=== PATIENT | male | born 1950 | race African-American/Black ===

== ENCOUNTER 2018-02-17 12:12 | Outpatient (CLI) | payer MEDICARE, OTHER ==
[2018-02-17 14:32] LABS: Bilirubin Negative (Negative); Blood, Urine Negative (Negative); Clarity CLEAR (Clear); Glucose, Urine (Dipstick) Negative (Negative); Leukocyte Negative (Negative); Nitrite Negative (Negative); Protein, Urine (Dipstick) Negative (Neg-Trace); Specific Gravity, Urine 1.021 (1.002-1.036)
[2018-02-17 14:34] LABS: Bacteria/HPF None Seen HPF (None Seen); Hyaline Casts/LPF 0-3 HYALINE CAST LPF (0-3 Hyaline); Squamous Epithelial None Seen HPF (0-3); WBC/HPF None Seen HPF (0-3)
== END 2018-02-17 12:13 | disposition home or self-care (01) ==
LOC: LABBT 12:12
PROVIDERS: ATTEND Orthopaedic Surgery
DX: Z01.818 Encounter for other preprocedural examination (principal); M16.11 Unilateral primary osteoarthritis, right hip
CPT/HCPCS: 81001; 87081; 93005; 93010

== ENCOUNTER 2018-02-17 12:30 | Inpatient (IN) | payer MEDICARE, OTHER ==
--- NOTE | 2018-02-24 09:26 | HP ---
HISTORY OF PRESENT ILLNESS: The patient is a 67-year-old male with a long history of progressive deg enerative arthritis of the right hip, unresponsive to conservative treatment including rest, restrict ion of activities, and use of antiinflammatory medications. The pain is now interfering with day-to- day activities including walking, getting dressed and sleeping. PAST MEDICAL HISTORY: The patient has history of gout, diabetes, arthritis, renal insufficiency, pre vious back surgery and previous right total knee replacement. He has also had some superficial absce sses of the finger infection apparently secondary to MRSA which resolved with ID and antibiotics. He has had no recent problems. CURRENT MEDICATIONS: Include amlodipine, rosuvastatin, Lyrica, hydrocodone, metformin. ALLERGIES: He has no known allergies. FAMILY HISTORY/SOCIAL HISTORY/REVIEW OF SYSTEMS: Otherwise unremarkable. PHYSICAL EXAMINATION: GENERAL: Reveals a healthy heavyset male. HEENT: Unremarkable. NECK: Supple. CHEST: Clear. HEART: Regular rate and rhythm. ABDOMEN: Soft, nontender. RECTAL/GENITAL: Deferred. EXTREMITIES: Pertinent findings to the right hip. Right leg is 1 cm short. There is tenderness in the anterior hip and groin area. There are no masses. There are venous stasis changes of both lower legs. Neurovascular exam is intact. Cannot palpate distal pulses. There is good capillary refill. There is decreased range of motion of the right hip and internal rotation of the hip which reproduc es his pain. There is a right antalgic gait. Straight leg raising is negative. LABORATORY AND X-RAY FINDINGS: X-rays of the pelvis and right hip reveal severe DJD with no joint sp omaira remaining. IMPRESSION: 1. Degenerative arthritis, right hip. 2. History of hypertension. 3. History of diabetes. 4. History of gout. 5. Status post right total knee replacement. PLAN: Right total hip replacement. The nature of the surgery, length of recovery, and potential com plications such as infection, loss of motion, incomplete relief, neurovascular injury, thromboembolic phenomena, leg length discrepancy, possible transfusion, and need for revision have been discussed i n detail.
[2018-02-28] MEDS ORDERED: Vancomycin HCl 1.5 GM in Sodium Chloride 0.9% 250 ML 300 ML IVPB SCH ×2 (08:00→20:00)
[2018-02-28] MEDS ORDERED: Midazolam HCl 2 mg/2 ml Vial ONE (08:01)
[2018-02-28] MEDS ORDERED: Fentanyl 100 MCG/2 ML VIAL ONE ×4 (08:01→12:13)
[2018-02-28] MEDS ORDERED: Sodium Chloride 0.9% 100 ML ONE (08:08)
[2018-02-28] MEDS ORDERED: CEFAZOLIN/Water 2 GM/20 ML SYRINGE ONE (08:08)
[2018-02-28] MEDS ORDERED: Ondansetron HCl/PF 4 MG/2 ML Vial IVP PRN ×4 (08:30→12:58)
[2018-02-28] MEDS ORDERED: Naloxone HCl 0.4 mg/ml Vial IV PRN (08:30)
[2018-02-28] MEDS ORDERED: traMADol HCl 50 MG TAB PO PRN ×3 (08:30→12:58)
[2018-02-28] MEDS ORDERED: diphenhydrAMINE 50 MG/ML VIAL IM PRN ×2 (08:30→11:49)
[2018-02-28] MEDS ORDERED: Promethazine HCl 25 MG/ML VIAL IM PRN ×3 (08:30→11:50)
[2018-02-28] MEDS ORDERED: Naloxone HCl 0.4 mg/ml Vial IVP PRN ×3 (08:30→11:49)
[2018-02-28] MEDS ORDERED: Hydrocerin (Eucerin) Cream 120 gm Jar TOP PRN (08:30)
[2018-02-28] MEDS ORDERED: Ketorolac Tromethamine 30 MG/ML VIAL IVP PRN (08:30)
[2018-02-28] MEDS ORDERED: HYDROcodone/Acetaminophen 5/325 mg Tablet PO PRN ×2 (08:30)
[2018-02-28] MEDS ORDERED: Zolpidem Tartrate 5 MG TAB PO PRN ×3 (08:30→12:58)
[2018-02-28] MEDS ORDERED: fentaNYL Citrate/PF 1,250 MCG, Bupivacaine 25 ML in Sodium Chloride 0.9% 250 ML 200 ML EPIDURAL SCH ×2 (08:30→12:00)
[2018-02-28] MEDS ORDERED: diphenhydrAMINE 25 MG CAP PO PRN ×3 (08:30→12:58)
[2018-02-28] MEDS ORDERED: Promethazine HCl 25 MG SUPP PR PRN ×2 (08:30→11:49)
[2018-02-28] MEDS ORDERED: diphenhydrAMINE 50 MG/ML VIAL IVP PRN ×2 (08:30→11:49)
[2018-02-28] MEDS ORDERED: Bupivacaine/Epinephrine 0.25% 30 ML VIAL ONE (09:28)
[2018-02-28] MEDS ORDERED: Tranexamic Acid 1,000 MG in Sodium Chloride 0.9% 100 ML IVPB SCH ×2 (11:45→12:58)
[2018-02-28] MEDS ORDERED: Bupivacaine 0.25% 10 ML VIAL EPIDURAL PRN (11:49)
[2018-02-28] MEDS ORDERED: Eucerin (Mineral Oil/Petrolatum,White) 30 gm Jar TOP PRN (11:49)
[2018-02-28] MEDS ORDERED: Promethazine HCl 25 MG/ML VIAL SLOW IVP PRN ×2 (11:50→12:58)
[2018-02-28] MEDS ORDERED: Communication Order-Pharmacy FS SCH ×2 (12:00)
[2018-02-28] MEDS ORDERED: Fentanyl 100 MCG/2 ML VIAL SLOW IVP PRN ×2 (12:58)
[2018-02-28] MEDS ORDERED: HYDROcodone/Acetaminophen 10/325 mg Tablet PO PRN ×2 (12:58)
--- NOTE | 2018-02-28 13:38 | RAD ---
RIGHT HIP TWO VIEWS: HISTORY: Status post right hip arthroplasty. COMPARISON: None. FINDINGS: Two views of the right hip show the patient to be status post right hip arthroplasty without perihard bowers lucency or fracture. Overlying soft tissue swelling is from recent surgery. IMPRESSION: Status post right hip arthroplasty without evidence of complication. POS: [facility]
--- NOTE | 2018-02-28 13:56 | OP ---
DATE OF PROCEDURE: 02/28/2018 PREOPERATIVE DIAGNOSIS: End-stage bicompartmental osteoarthritis, right hip. POSTOPERATIVE DIAGNOSIS: End-stage bicompartmental osteoarthritis, right hip. PROCEDURE: Press-fit right total hip arthroplasty. SURGEON: Kimo Mccormack M.D. BOTTLE LINE WORKER: Gino Nguyen PA-C. ANESTHESIA: General via endotracheal tube augmented with indwelling epidural. COMPONENTS USED: [facility] [employer] PSL, 58 mm Press-Fit cluster acetabular shell with a 0 degree fixed bearing polyethylene insert, V40 40 mm metallic femoral head neutral offset with standar d neck length with a size 4 Accolade press-fit hip stem. DRAINS: None. SPECIMENS: None. COMPLICATIONS: None. ESTIMATED BLOOD LOSS: 350 mL. FLUIDS: Intake was 1400 crystalloid. OUTPUT: 200 mL of clear yellow urine output. DRAINS: None. SPECIMENS: None. COMPLICATIONS: None. COUNTS: Correct. INDICATIONS FOR SURGERY: Ty is a 67-year-old male who has had right hip, groi n, and thigh pain amplified with standing and walking for the last 5-7 years. He has failed conserva tive management and elected to proceed with total hip arthroplasty to prevent pain. PROCEDURE IN DETAIL: After informed consent was obtained in the preoperative holding area, the patie nt was taken to the operative suite where general anesthesia was induced. The patient was then posit ioned in the lateral decubitus position. The hip was then prepped and draped in usual sterile fashio n. The patient received preoperative antibiotics. Prior to incision, time-out was called and all me mbers of the surgical team agreed upon site, surgeon, and patient. After this, a longitudinal incisi on was made directly over the trochanter, noted by palpation extending 2 fingerbreadths above and bel ow the trochanter. The deeper subcutaneous layer was undermined with Bovie electrocautery. The ilio tibial band was encountered and incised sharply and the plane below this was developed bluntly. A lis retractor was placed to hold this opened. The lateral aspect of the trochanter and the abduct or muscles were encountered and then reflected anteriorly off the trochanter using Bovie electrocaute ry. Once this was completed, the anterior capsule was then encountered and identified and copious ca psulotomy was carried out, exposing the femoral neck and head. Dislocation maneuver was then performe d and an in situ provisional neck cut was then made using the oscillating saw. Attention was then tu rned to acetabular preparation and sequential reaming was carried out up to the appropriate diameter and a trial was then malleted into place with good firm resistance and no pullout. The permanent omaira tabular shell was then malleted squarely into place, as was the appropriate liner. Once completed, t he wound was copiously irrigated and attention was then turned to femoral preparation. Flexion and ex ternal rotation was performed of the exposed thigh and femoral elevators were then placed at the prox imal aspect of the wound. Canal finder was used to establish the length of the canal and sequential reaming was carried out, followed by broaching. Once the appropriate stability was established with the trial broaches with both flexion, extension and rotational stability, we did trial with neutral a nd 2 mm offset incremental necks. Once the appropriate size was decided upon, with good stability no eduard with flexion, extension, internal and external rotation and shuck being negative, we removed the femoral trial broach and malletted into place the permanent prosthesis with good firm fit, which was also stable to rotation. Again, the hip felt very stable to flexion, extension, internal and externa l rotation. Leg lengths appeared near anatomic clinically and we were quite happy with prosthesis pl acement. Copious irrigation was then carried out through the entirety of the wound. Primary closure of the abductors was accomplished with interrupted #2 Vicryl mflosh-is-ejuvd stitches and the IT ban d was then closed with interrupted #2 Vicryl, oversewn with a #2 running barbed Quill stitch. Subcut aneous fascia was closed with running barbed Quill stitch and a subcuticular Monocryl barbed Quill st itch was used for skin closure and augmented with skin cement. A sterile dressing was applied. The p rocedure was terminated without any complication. All counts were correct. The patient was awakened in the operative suite and taken to the recovery room in stable condition.
[2018-02-28] MEDS ORDERED: CEFAZOLIN/Water 2 GM/20 ML SYRINGE SLOW IVP SCH (14:00)
--- NOTE | 2018-02-28 14:34 | PDOC.PN ---
- Subjective Encounter Start Date: 02/28/18 Encounter Start Time: 14:30 Subjective: is post op right hip replacement -: no sob or chest pain -: is going for walk with PT/OT - Objective MAR Reviewed: Yes Vital Signs & Weight: Vital Signs (12 hours) Temp Pulse Resp BP Pulse Ox 02/28/18 12:58 97.5 F L 64 18 103/65 97 Weight Weight 280 lb I&O: 02/27/18 02/28/18 03/01/18 06:59 06:59 06:59 Intake Total 200 Balance 200 Additional Labs: Accuchecks 02/28/18 09:10 POC Glucose 114 H Phys Exam - Physical Examination HEENT: PERRLA, moist MMs Neck: no JVD, supple Respiratory: no wheezing, no rales Cardiovascular: RRR, no significant murmur Gastrointestinal: soft, non-tender, positive bowel sounds Musculoskeletal: pulses present Neurological: non-focal, moves all 4 limbs Psychiatric: normal affect, A&O x 3 Dx/Plan (1) Status post right hip replacement Code(s): Z96.641 - PRESENCE OF RIGHT ARTIFICIAL HIP JOINT Status: Acute (2) DM type 2 (diabetes mellitus, type 2) Status: Chronic Qualifiers: Diabetes mellitus assisted insulin use: without assisted use Diabetes mellitus complication status: with unspecified complications Qualified Code(s) : E11.8 - Type 2 diabetes mellitus with unspecified complications (3) Dyslipidemia Code(s): E78.5 - HYPERLIPIDEMIA, UNSPECIFIED Status: Chronic Comment: on Crestor (4) HTN (hypertension) Code(s): I10 - ESSENTIAL (PRIMARY) HYPERTENSION Status: Chronic Qualifiers: Hypertension type: essential hypertension Qualified Code(s): I10 - Essential (primary) hypertension (5) Obesity (BMI 30-39.9) Code(s): E66.9 - OBESITY, UNSPECIFIED Status: Chronic - Plan is on asp bid for dvt prophylaxis -: continue norvasc, metformin, iron. -: hold hctz for now, pt is on iv fluids -: marcaine, fentanyl, narco, ultram prn for pain -: will f/u * . Review of Systems - Medications/Allergies Allergies/Adverse Reactions: Allergies Allergy/AdvReac Type Severity Reaction Status Date / Time No Known Allergies Allergy Verified 02/17/18 12:33 Medications: Current Medications Acetaminophen (Tylenol) 650 mg PO Q4H PRN PRN Reason: PRO/ T > 101F; Mild Pain (1-3) Hydrocodone Bitart/Acetaminophen ([place] 5/325) 1 tab PO Q4H PRN PRN Reason: Mild Pain 0-3 Hydrocodone Bitart/Acetaminophen ([place] 5/325) 2 tab PO Q4H PRN PRN Reason: For Moderate Pain 4-6 Amlodipine Besylate (Norvasc) 10 mg PO DAILY [facility] Aspirin (Aspirin) 325 mg PO BID [facility] Bupivacaine HCl (Marcaine) 5 ml EPIDURAL ONE PRN PRN Reason: Uncontrolled Pain Stop: 03/05/18 11:50 Cefazolin Sodium (Ancef) 2 gm SLOW IVP 0200,1000,1800 [facility] Stop: 03/01/18 02:01 Celecoxib (Celebrex) 200 mg PO DAILY [facility] Diphenhydramine HCl (Benadryl) 25 mg IVP Q3H PRN PRN Reason: Itching Diphenhydramine HCl (Benadryl) 25 mg PO Q3H PRN PRN Reason: Itching Diphenhydramine HCl (Benadryl) 25 mg IM Q3H PRN PRN Reason: Itching Ferrous Gluconate (Fergon) 324 mg PO BID [facility] Hydrochlorothiazide (Hydrochlorothiazide) 25 mg PO DAILY [facility] Fentanyl Citrate 1,250 mcg/Bupivacaine HCl 25 ml/ Sodium Chloride 250 mls @ 0 mls/hr EPIDURAL INF ANN PRN Reason: As Directed Sodium Chloride (Normal Saline 0.9%) 1,000 mls @ 100 mls/hr IV .Q10H ANN Vancomycin HCl 1.5 gm/ Sodium (Chloride) 300 mls @ 200 mls/hr IVPB 1999 [facility] Stop: 02/28/18 21:29 Iron/Minerals/Multivitamins (Theragran M) 1 tab PO DAILY [facility] Metformin HCl (Glucophage) 500 mg PO DAILY [facility] Mineral Oil/White Petrolatum (Eucerin Cream) 0 gm TOP PRN PRN PRN Reason: Itching Miscellaneous Information (Communication Order-Pharmacy) 1 each FS ASDIR [facility] Miscellaneous Information (Communication Order-Pharmacy) 1 each FS ONE [facility] Stop: 03/05/18 12:01 Miscellaneous Information (Communication Order-Pharmacy) 1 each FS ONE [facility] Stop: 03/05/18 12:01 Naloxone HCl (Narcan) 0.2 mg IVP Q5MIN PRN PRN Reason: Opiate Reversal Naloxone HCl (Narcan) 0.1 mg IVP Q15MIN PRN PRN Reason: Urinary retention Ondansetron HCl (Zofran) 4 mg IVP Q6H PRN PRN Reason: Nausea/Vomiting Ondansetron HCl (Zofran) 4 mg IVP Q6H PRN PRN Reason: Nausea/Vomiting Pantoprazole Sodium (Protonix) 40 mg PO DAILY [facility] Pneumococcal 13-Valent Conj Vacc (Prevnar) 0.5 ml IM .ONCE ONE Stop: 02/28/18 21:01 Pregabalin (Lyrica) 150 mg PO BID [facility] Promethazine HCl (Phenergan) 12.5 mg IM Q4H PRN PRN Reason: Nausea/Vomiting Promethazine HCl (Phenergan Suppository) 25 mg [place] Q4H PRN PRN Reason: Nausea/Vomiting Promethazine HCl (Phenergan) 12.5 mg SLOW IVP Q4H PRN PRN Reason: Nausea/Vomiting Rosuvastatin Calcium (Crestor) 20 mg PO HS [facility] Senna/Docusate Sodium (Senokot S) 2 tab PO BID [facility] Sodium Chloride (Flush - Normal Saline) 10 ml IVF PRN PRN PRN Reason: Saline Flush Tramadol HCl (Ultram) 50 mg PO Q6H PRN PRN Reason: Mild Pain 1-3 Tramadol HCl (Ultram) 100 mg PO Q6H PRN PRN Reason: Moderate Pain 4-6 Zolpidem Tartrate (Ambien) 5 mg PO HSPRN PRN PRN Reason: Insomnia
[2018-02-28] MEDS ORDERED: Ondansetron HCl/PF 4 MG/2 ML Vial ONE (14:43)
[2018-02-28] MEDS ORDERED: ePHEDrine/0.9% NaCl/PF SYRINGE 50 mg/10 ml ONE (14:43)
[2018-02-28] MEDS ORDERED: PHENYLEPHRINE-NS 100 MCG/ML 10 ML SYRINGE ONE (14:43)
[2018-02-28] MEDS ORDERED: Lidocaine 1% PF 5 ML VIAL ONE (14:43)
[2018-02-28] MEDS ORDERED: PROPOFOL 200 MG/20 ML VIAL ONE (14:43)
[2018-02-28] MEDS: CEFAZOLIN/Water 2 GM/20 ML SYRINGE SLOW IVP SCH (18:12)
[2018-02-28] MEDS: Sodium Chloride 0.9% 1,000 ML IV SCH (18:12)
[2018-02-28] MEDS: Rosuvastatin 20 MG TAB PO SCH (20:03)
[2018-02-28] MEDS: Aspirin 325 MG TAB PO SCH (20:03)
[2018-02-28] MEDS: Senokot S 8.6-50 MG TAB PO SCH (20:03)
[2018-02-28] MEDS: Ferrous Gluconate 324 MG TAB PO SCH (20:03)
[2018-02-28] MEDS: Pregabalin 75 MG CAP PO SCH (20:03)
[2018-02-28] MEDS ORDERED: Prevnar 13-Val Conj/PF 0.5 ML SYRINGE IM ONE (21:00)
[2018-03-01] MEDS: Sodium Chloride 0.9% 1,000 ML IV SCH ×3 (00:30→16:45)
[2018-03-01] MEDS: Acetaminophen 325 MG TAB PO PRN ×2 (00:31→20:01)
[2018-03-01] MEDS: CEFAZOLIN/Water 2 GM/20 ML SYRINGE SLOW IVP SCH (02:14)
[2018-03-01 05:24] LABS: Hemoglobin 12.6 g/dL (14.0-18.0); Mean Corpuscular HGB CONC 34.3 g/dL (32.0-36.0); Mean Corpuscular Hemoglobin 30.3 pg (27.0-31.0); Mean Corpuscular Volume 88.6 fL (78.0-98.0); Mean Platelet Volume 7.5 fL (7.4-10.4); Platelet Count 186 thou/uL (130-400); RBC Distribution Width 12.9 % (11.5-14.5); Red Blood Cell (RBC) Count 4.14 mill/uL (4.70-6.10); White Blood Cell (WBC) Count 7.8 thou/uL (4.8-10.8)
[2018-03-01] MEDS: Ferrous Gluconate 324 MG TAB PO SCH ×2 (08:36→20:02)
[2018-03-01] MEDS: CeleCOXIB 100 MG CAP PO SCH (08:36)
[2018-03-01] MEDS: Aspirin 325 MG TAB PO SCH ×2 (08:36→20:02)
[2018-03-01] MEDS: Amlodipine 10 MG TAB PO SCH (08:36)
[2018-03-01] MEDS: Multivitamin W/ Minerals 1 TAB PO SCH (08:37)
[2018-03-01] MEDS: Hydrochlorothiazide 25 MG TAB PO SCH (08:37)
[2018-03-01] MEDS: metFORMIN 500 MG TAB PO SCH (08:37)
[2018-03-01] MEDS: Pregabalin 75 MG CAP PO SCH ×2 (08:37→20:02)
[2018-03-01] MEDS: Senokot S 8.6-50 MG TAB PO SCH ×2 (08:38→20:01)
--- NOTE | 2018-03-01 10:01 | PRG ---
DATE OF SERVICE: 03/01/2018 SUBJECTIVE: Ty is a 67-year-old male postop day #1 from a right total hip arthroplasty. He is doing relatively well. He has no complaints of pain. He is taking a regular diet and voiding. Fol ey is still intact, urine output was good. OBJECTIVE: GENERAL: He is alert and oriented to person, place, and time and situation. Grossly nonfocal. EXTR EMITIES: There is no erythema around his incision. No strikethrough. Hemoglobin and hematocrit is 12.6 and 36.7. IMPRESSION: A 67-year-old male postop day #1 right total hip arthroplasty, doing well. PLAN: Continue current care. Possible discharge tomorrow versus skilled or rehab placement.
[2018-03-01 12:27] VITALS: BMI 35.2
--- NOTE | 2018-03-01 12:29 | PDOC.PN ---
- Subjective Encounter Start Date: 03/01/18 Encounter Start Time: 10:20 Subjective: no sob or chest pain -: ambulated with PT this morning -: children/family at bedside - Objective MAR Reviewed: Yes Vital Signs & Weight: Vital Signs (12 hours) Temp Pulse Resp BP BP Pulse Ox 03/01/18 11:52 99.2 F 86 18 116/57 L 95 03/01/18 08:36 87 122/66 03/01/18 07:35 100.9 F H 87 20 122/66 95 03/01/18 07:00 100.9 F H 87 20 03/01/18 05:00 100 F H 91 20 116/72 94 L Weight Admit Weight 260 lb Weight 260 lb I&O: 02/28/18 03/01/18 03/02/18 06:59 06:59 06:59 Intake Total 1400 Output Total 2000 Balance -600 Result Diagrams: 03/01/18 04:53 Additional Labs: Accuchecks 02/28/18 22:10 POC Glucose 112 H Phys Exam - Physical Examination HEENT: PERRLA, moist MMs Neck: no JVD, supple Respiratory: no wheezing, no rales Cardiovascular: RRR, no significant murmur Gastrointestinal: soft, non-tender, positive bowel sounds Musculoskeletal: no edema, pulses present Neurological: non-focal, moves all 4 limbs Psychiatric: normal affect, A&O x 3 Dx/Plan (1) Status post right hip replacement Code(s): Z96.641 - PRESENCE OF RIGHT ARTIFICIAL HIP JOINT Status: Acute Comment: done on 02/28/2018 (2) DM type 2 (diabetes mellitus, type 2) Status: Chronic Qualifiers: Diabetes mellitus termite helper insulin use: without senior care use Diabetes mellitus complication status: with unspecified complications Qualified Code(s) : E11.8 - Type 2 diabetes mellitus with unspecified complications (3) Dyslipidemia Code(s): E78.5 - HYPERLIPIDEMIA, UNSPECIFIED Status: Chronic Comment: on Martha (4) HTN (hypertension) Code(s): I10 - ESSENTIAL (PRIMARY) HYPERTENSION Status: Chronic Qualifiers: Hypertension type: essential hypertension Qualified Code(s): I10 - Essential (primary) hypertension (5) Obesity (BMI 30-39.9) Code(s): E66.9 - OBESITY, UNSPECIFIED Status: Chronic - Plan hemostable -: on asp bid, norvasc and metformin daily -: had post op fever -: is working actively with PT -: dc plan per ortho advice * . Review of Systems - Medications/Allergies Allergies/Adverse Reactions: Allergies Allergy/AdvReac Type Severity Reaction Status Date / Time No Known Allergies Allergy Verified 02/17/18 12:33 Medications: Current Medications Acetaminophen (Tylenol) 650 mg PO Q4H PRN PRN Reason: PRO/ T > 101F; Mild Pain (1-3) Last Admin: 03/01/18 00:31 Dose: 650 mg Hydrocodone Bitart/Acetaminophen ([place] 5/325) 1 tab PO Q4H PRN PRN Reason: Mild Pain 0-3 Hydrocodone Bitart/Acetaminophen ([place] 5/325) 2 tab PO Q4H PRN PRN Reason: For Moderate Pain 4-6 Amlodipine Besylate (Norvasc) 10 mg PO DAILY [facility] Last Admin: 03/01/18 08:36 Dose: 10 mg Aspirin (Aspirin) 325 mg PO BID [facility] Last Admin: 03/01/18 08:36 Dose: 325 mg Bupivacaine HCl (Marcaine) 5 ml EPIDURAL ONE PRN PRN Reason: Uncontrolled Pain Stop: 03/05/18 11:50 Celecoxib (Celebrex) 200 mg PO DAILY [facility] Last Admin: 03/01/18 08:36 Dose: 200 mg Diphenhydramine HCl (Benadryl) 25 mg IVP Q3H PRN PRN Reason: Itching Diphenhydramine HCl (Benadryl) 25 mg PO Q3H PRN PRN Reason: Itching Diphenhydramine HCl (Benadryl) 25 mg IM Q3H PRN PRN Reason: Itching Ferrous Gluconate (Fergon) 324 mg PO BID [facility] Last Admin: 03/01/18 08:36 Dose: 324 mg Hydrochlorothiazide (Hydrochlorothiazide) 25 mg PO DAILY [facility] Last Admin: 03/01/18 08:37 Dose: 25 mg Fentanyl Citrate 1,250 mcg/Bupivacaine HCl 25 ml/ Sodium Chloride 250 mls @ 0 mls/hr EPIDURAL INF ANN PRN Reason: As Directed Sodium Chloride (Normal Saline 0.9%) 1,000 mls @ 100 mls/hr IV .Q10H [facility] Last Admin: 03/01/18 08:35 Dose: Not Given Iron/Minerals/Multivitamins (Theragran M) 1 tab PO DAILY [facility] Last Admin: 03/01/18 08:37 Dose: 1 tab Metformin HCl (Glucophage) 500 mg PO DAILY [facility] Last Admin: 03/01/18 08:37 Dose: 500 mg Mineral Oil/White Petrolatum (Eucerin Cream) 0 gm TOP PRN PRN PRN Reason: Itching Miscellaneous Information (Communication Order-Pharmacy) 1 each FS ASDIR [facility] Miscellaneous Information (Communication Order-Pharmacy) 1 each FS ONE [facility] Stop: 03/05/18 12:01 Miscellaneous Information (Communication Order-Pharmacy) 1 each FS ONE [facility] Stop: 03/05/18 12:01 Naloxone HCl (Narcan) 0.2 mg IVP Q5MIN PRN PRN Reason: Opiate Reversal Naloxone HCl (Narcan) 0.1 mg IVP Q15MIN PRN PRN Reason: Urinary retention Ondansetron HCl (Zofran) 4 mg IVP Q6H PRN PRN Reason: Nausea/Vomiting Ondansetron HCl (Zofran) 4 mg IVP Q6H PRN PRN Reason: Nausea/Vomiting Pantoprazole Sodium (Protonix) 40 mg PO DAILY [facility] Last Admin: 03/01/18 08:37 Dose: 40 mg Pregabalin (Lyrica) 150 mg PO BID [facility] Last Admin: 03/01/18 08:37 Dose: 150 mg Promethazine HCl (Phenergan) 12.5 mg IM Q4H PRN PRN Reason: Nausea/Vomiting Promethazine HCl (Phenergan Suppository) 25 mg [place] Q4H PRN PRN Reason: Nausea/Vomiting Promethazine HCl (Phenergan) 12.5 mg SLOW IVP Q4H PRN PRN Reason: Nausea/Vomiting Rosuvastatin Calcium (Crestor) 20 mg PO [facility] Last Admin: 02/28/18 20:03 Dose: 20 mg Senna/Docusate Sodium (Senokot S) 2 tab PO BID [facility] Last Admin: 03/01/18 08:38 Dose: 2 tab Sodium Chloride (Flush - Normal Saline) 10 ml IVF PRN PRN PRN Reason: Saline Flush Tramadol HCl (Ultram) 50 mg PO Q6H PRN PRN Reason: Mild Pain 1-3 Tramadol HCl (Ultram) 100 mg PO Q6H PRN PRN Reason: Moderate Pain 4-6 Zolpidem Tartrate (Ambien) 5 mg PO HSPRN PRN PRN Reason: Insomnia
[2018-03-01] MEDS: Rosuvastatin 20 MG TAB PO SCH (20:02)
[2018-03-02] MEDS: Sodium Chloride 0.9% 1,000 ML IV SCH ×2 (04:37→13:58)
[2018-03-02] MEDS: CeleCOXIB 100 MG CAP PO SCH (08:13)
[2018-03-02] MEDS: Aspirin 325 MG TAB PO SCH ×2 (08:13→20:55)
[2018-03-02] MEDS: Amlodipine 10 MG TAB PO SCH (08:13)
[2018-03-02] MEDS: Multivitamin W/ Minerals 1 TAB PO SCH (08:14)
[2018-03-02] MEDS: Hydrochlorothiazide 25 MG TAB PO SCH (08:14)
[2018-03-02] MEDS: Pregabalin 75 MG CAP PO SCH ×2 (08:14→20:55)
[2018-03-02] MEDS: metFORMIN 500 MG TAB PO SCH (08:14)
[2018-03-02] MEDS: Ferrous Gluconate 324 MG TAB PO SCH ×2 (08:14→20:52)
[2018-03-02] MEDS: Senokot S 8.6-50 MG TAB PO SCH ×2 (08:15→20:57)
--- NOTE | 2018-03-02 14:56 | PDOC.PN ---
- Subjective Encounter Start Date: 03/02/18 Encounter Start Time: 07:20 Pt seen for followup re: hypertension. Denies chest pain, shortness of breath, fevers or chills. - Objective MAR Reviewed: Yes Vital Signs & Weight: Vital Signs (12 hours) Temp Pulse Resp BP BP BP Pulse Ox 03/02/18 12:04 98.6 F 90 18 103/65 96 03/02/18 08:13 90 127/75 03/02/18 08:00 97.9 F 90 18 03/02/18 07:10 97.9 F 90 18 127/75 96 03/02/18 04:00 100 F H 91 20 95/60 93 L Weight Admit Weight 260 lb Weight 260 lb I&O: 03/01/18 03/02/18 03/03/18 06:59 06:59 06:59 Intake Total 1400 2140 Output Total 1999 1875 Balance -600 265 Result Diagrams: 03/01/18 04:53 Additional Labs: labs reviewed by me Phys Exam - Physical Examination Obese HEENT: moist MMs Neck: supple Respiratory: clear to auscultation bilateral Cardiovascular: RRR Gastrointestinal: soft Neurological: moves all 4 limbs Psychiatric: normal affect Dx/Plan (1) HTN (hypertension) Code(s): I10 - ESSENTIAL (PRIMARY) HYPERTENSION Status: Chronic Qualifiers: Hypertension type: essential hypertension Qualified Code(s): I10 - Essential (primary) hypertension Comment: controlled (2) DM type 2 (diabetes mellitus, type 2) Status: Chronic Qualifiers: Diabetes mellitus detention insulin use: without buttermaker use Diabetes mellitus complication status: with unspecified complications Qualified Code(s) : E11.8 - Type 2 diabetes mellitus with unspecified complications Comment: reasonably controlled with accuchecks, insulin sliding scale (3) Dyslipidemia Code(s): E78.5 - HYPERLIPIDEMIA, UNSPECIFIED Status: Chronic Comment: continue Crestor (4) Arthritis Code(s): M19.90 - UNSPECIFIED OSTEOARTHRITIS, UNSPECIFIED SITE Status: Chronic Comment: s/p R hip surgery. DVT prophylaxis and pain management per orthopedic surgery service. - Plan * . Review of Systems - Review of Systems Constitutional: negative: fever, chills, sweats, weakness, malaise Cardiovascular: negative: chest pain, palpitations, orthopnea, paroxysmal nocturnal dyspnea, edema, light headedness - Medications/Allergies Allergies/Adverse Reactions: Allergies Allergy/AdvReac Type Severity Reaction Status Date / Time No Known Allergies Allergy Verified 02/17/18 12:33 Medications: Current Medications Acetaminophen (Tylenol) 650 mg PO Q4H PRN PRN Reason: PRO/ T > 101F; Mild Pain (1-3) Last Admin: 03/01/18 20:01 Dose: 650 mg Hydrocodone Bitart/Acetaminophen ([place] 5/325) 1 tab PO Q4H PRN PRN Reason: Mild Pain 0-3 Hydrocodone Bitart/Acetaminophen ([place] 5/325) 2 tab PO Q4H PRN PRN Reason: For Moderate Pain 4-6 Amlodipine Besylate (Norvasc) 10 mg PO DAILY [facility] Last Admin: 03/02/18 08:13 Dose: 10 mg Aspirin (Aspirin) 325 mg PO BID [facility] Last Admin: 03/02/18 08:13 Dose: 325 mg Bupivacaine HCl (Marcaine) 5 ml EPIDURAL ONE PRN PRN Reason: Uncontrolled Pain Stop: 03/05/18 11:50 Celecoxib (Celebrex) 200 mg PO DAILY [facility] Last Admin: 03/02/18 08:13 Dose: 200 mg Diphenhydramine HCl (Benadryl) 25 mg IVP Q3H PRN PRN Reason: Itching Diphenhydramine HCl (Benadryl) 25 mg PO Q3H PRN PRN Reason: Itching Diphenhydramine HCl (Benadryl) 25 mg IM Q3H PRN PRN Reason: Itching Ferrous Gluconate (Fergon) 324 mg PO BID [facility] Last Admin: 03/02/18 08:14 Dose: 324 mg Hydrochlorothiazide (Hydrochlorothiazide) 25 mg PO DAILY [facility] Last Admin: 03/02/18 08:14 Dose: 25 mg Fentanyl Citrate 1,250 mcg/Bupivacaine HCl 25 ml/ Sodium Chloride 250 mls @ 0 mls/hr EPIDURAL INF [facility] PRN Reason: As Directed Last Admin: 03/02/18 04:54 Dose: 250 mls Sodium Chloride (Normal Saline 0.9%) 1,000 mls @ 100 mls/hr IV .Q10H [facility] Last Admin: 03/02/18 13:58 Dose: Not Given Iron/Minerals/Multivitamins (Theragran M) 1 tab PO DAILY [facility] Last Admin: 03/02/18 08:14 Dose: 1 tab Metformin HCl (Glucophage) 500 mg PO DAILY [facility] Last Admin: 03/02/18 08:14 Dose: 500 mg Mineral Oil/White Petrolatum (Eucerin Cream) 0 gm TOP PRN PRN PRN Reason: Itching Miscellaneous Information (Communication Order-Pharmacy) 1 each FS ASDIR [facility] Miscellaneous Information (Communication Order-Pharmacy) 1 each FS ONE [facility] Stop: 03/05/18 12:01 Miscellaneous Information (Communication Order-Pharmacy) 1 each FS ONE [facility] Stop: 03/05/18 12:01 Naloxone HCl (Narcan) 0.2 mg IVP Q5MIN PRN PRN Reason: Opiate Reversal Naloxone HCl (Narcan) 0.1 mg IVP Q15MIN PRN PRN Reason: Urinary retention Ondansetron HCl (Zofran) 4 mg IVP Q6H PRN PRN Reason: Nausea/Vomiting Ondansetron HCl (Zofran) 4 mg IVP Q6H PRN PRN Reason: Nausea/Vomiting Pantoprazole Sodium (Protonix) 40 mg PO DAILY [facility] Last Admin: 03/02/18 08:14 Dose: 40 mg Pregabalin (Lyrica) 150 mg PO BID [facility] Last Admin: 03/02/18 08:14 Dose: 150 mg Promethazine HCl (Phenergan) 12.5 mg IM Q4H PRN PRN Reason: Nausea/Vomiting Promethazine HCl (Phenergan Suppository) 25 mg [place] Q4H PRN PRN Reason: Nausea/Vomiting Promethazine HCl (Phenergan) 12.5 mg SLOW IVP Q4H PRN PRN Reason: Nausea/Vomiting Rosuvastatin Calcium (Crestor) 20 mg PO [facility] Last Admin: 03/01/18 20:02 Dose: 20 mg Senna/Docusate Sodium (Senokot S) 2 tab PO BID [facility] Last Admin: 03/02/18 08:15 Dose: 2 tab Sodium Chloride (Flush - Normal Saline) 10 ml IVF PRN PRN PRN Reason: Saline Flush Tramadol HCl (Ultram) 50 mg PO Q6H PRN PRN Reason: Mild Pain 1-3 Tramadol HCl (Ultram) 100 mg PO Q6H PRN PRN Reason: Moderate Pain 4-6 Zolpidem Tartrate (Ambien) 5 mg PO HSPRN PRN PRN Reason: Insomnia
--- NOTE | 2018-03-02 18:15 | PRG ---
DATE OF SERVICE: 03/02/2018 SUBJECTIVE: Ty is a 67-year-old -Citizen Of [place] male who is postop day #2 from a right total hip arthroplasty. He is comfortable today and he is also doing well with the ambulatory efforts. I believe the consult has been turned in for skilled placement and we are waiting approval. He is tole rating a regular diet. His epidural and Cintron are still in. OBJECTIVE: VITAL SIGNS: Temperature 98.6, pulse 90, respiratory rate 18, and O2 saturations 96% on room air, bl ood pressure is 103/65. GENERAL: He is alert and oriented to person, place, time, and situation. Nonfocal appropriate with examiner. His incision is clean, no erythema, no strikethrough. LABORATORY DATA: Hemoglobin and hematocrit 12.6 and 36.7. IMPRESSION: 1. A 67-year-old -Citizen Of [place] male postop day #2 right total hip arthroplasty, doing well. 2. Asymptomatic mild hemorrhagic anemia. PLAN: Continue physical therapy. Plan for skilled placement tomorrow.
[2018-03-02] MEDS: Rosuvastatin 20 MG TAB PO SCH (20:52)
[2018-03-03] MEDS: Sodium Chloride 0.9% 1,000 ML IV SCH (00:22)
[2018-03-03] MEDS: metFORMIN 500 MG TAB PO SCH (09:15)
[2018-03-03] MEDS: CeleCOXIB 100 MG CAP PO SCH (10:23)
[2018-03-03] MEDS: Hydrochlorothiazide 25 MG TAB PO SCH (10:23)
[2018-03-03] MEDS: Aspirin 325 MG TAB PO SCH (10:23)
[2018-03-03] MEDS: Pregabalin 75 MG CAP PO SCH (10:24)
[2018-03-03] MEDS: Senokot S 8.6-50 MG TAB PO SCH (10:24)
[2018-03-03] MEDS: Multivitamin W/ Minerals 1 TAB PO SCH (10:24)
[2018-03-03] MEDS: Ferrous Gluconate 324 MG TAB PO SCH (10:25)
[2018-03-03] MEDS: Amlodipine 10 MG TAB PO SCH (10:25)
[2018-03-03 12:07] VITALS: TEMP 99.3
--- NOTE | 2018-03-03 12:53 | PDOC.PN ---
- Subjective Encounter Start Date: 03/03/18 Encounter Start Time: 10:00 Pt seen for followup re; hypertension. Denies chest pain, shortness of breath, fevers or chills. - Objective MAR Reviewed: Yes Vital Signs & Weight: Vital Signs (12 hours) Temp Pulse Resp BP Pulse Ox 03/03/18 12:07 99.3 F 86 18 128/71 96 03/03/18 10:25 86 03/03/18 08:00 100.3 F H 86 22 H 110/74 96 03/03/18 04:23 100.4 F H 85 17 100/61 97 Weight Admit Weight 260 lb Weight 260 lb I&O: 03/02/18 03/03/18 03/04/18 06:59 06:59 06:59 Intake Total 2140 1080 Output Total 1875 2300 Balance 265 -1220 Result Diagrams: 03/01/18 04:53 Additional Labs: labs reviewed by me Phys Exam - Physical Examination Constitutional: NAD HEENT: sclera anicteric Neck: supple Respiratory: clear to auscultation bilateral Cardiovascular: RRR Gastrointestinal: soft s/p R hip surgery Neurological: moves all 4 limbs Psychiatric: normal affect Dx/Plan (1) HTN (hypertension) Code(s): I10 - ESSENTIAL (PRIMARY) HYPERTENSION Status: Chronic Qualifiers: Hypertension type: essential hypertension Qualified Code(s): I10 - Essential (primary) hypertension Comment: controlled, stable (2) DM type 2 (diabetes mellitus, type 2) Status: Chronic Qualifiers: Diabetes mellitus detention insulin use: without detention use Diabetes mellitus complication status: with unspecified complications Qualified Code(s) : E11.8 - Type 2 diabetes mellitus with unspecified complications Comment: reasonably controlled (3) Dyslipidemia Code(s): E78.5 - HYPERLIPIDEMIA, UNSPECIFIED Status: Chronic Comment: continue Crestor (4) Arthritis Code(s): M19.90 - UNSPECIFIED OSTEOARTHRITIS, UNSPECIFIED SITE Status: Chronic Comment: s/p R hip surgery. - Plan * . Review of Systems - Review of Systems Constitutional: negative: fever, chills, sweats, weakness, malaise Cardiovascular: negative: chest pain, palpitations, orthopnea, paroxysmal nocturnal dyspnea, edema, light headedness Musculoskeletal: negative: Neck Pain, Shoulder Pain, Arm Pain, Back Pain, Hand Pain, Leg Pain, Foot Pain - Medications/Allergies Allergies/Adverse Reactions: Allergies Allergy/AdvReac Type Severity Reaction Status Date / Time No Known Allergies Allergy Verified 02/17/18 12:33 Medications: Current Medications Acetaminophen (Tylenol) 650 mg PO Q4H PRN PRN Reason: PRO/ T > 101F; Mild Pain (1-3) Last Admin: 03/01/18 20:01 Dose: 650 mg Hydrocodone Bitart/Acetaminophen ([place] 5/325) 1 tab PO Q4H PRN PRN Reason: Mild Pain 0-3 Hydrocodone Bitart/Acetaminophen ([place] 5/325) 2 tab PO Q4H PRN PRN Reason: For Moderate Pain 4-6 Last Admin: 03/03/18 10:25 Dose: 2 tab Amlodipine Besylate (Norvasc) 10 mg PO DAILY [facility] Last Admin: 03/03/18 10:25 Dose: 10 mg Aspirin (Aspirin) 325 mg PO BID [facility] Last Admin: 03/03/18 10:23 Dose: 325 mg Bupivacaine HCl (Marcaine) 5 ml EPIDURAL ONE PRN PRN Reason: Uncontrolled Pain Stop: 03/05/18 11:50 Celecoxib (Celebrex) 200 mg PO DAILY [facility] Last Admin: 03/03/18 10:23 Dose: 200 mg Diphenhydramine HCl (Benadryl) 25 mg IVP Q3H PRN PRN Reason: Itching Diphenhydramine HCl (Benadryl) 25 mg PO Q3H PRN PRN Reason: Itching Diphenhydramine HCl (Benadryl) 25 mg IM Q3H PRN PRN Reason: Itching Ferrous Gluconate (Fergon) 324 mg PO BID [facility] Last Admin: 03/03/18 10:25 Dose: 324 mg Hydrochlorothiazide (Hydrochlorothiazide) 25 mg PO DAILY [facility] Last Admin: 03/03/18 10:23 Dose: 25 mg Fentanyl Citrate 1,250 mcg/Bupivacaine HCl 25 ml/ Sodium Chloride 250 mls @ 0 mls/hr EPIDURAL INF [facility] PRN Reason: As Directed Last Admin: 03/02/18 04:54 Dose: 250 mls Sodium Chloride (Normal Saline 0.9%) 1,000 mls @ 100 mls/hr IV .Q10H [facility] Last Admin: 03/03/18 00:22 Dose: Not Given Iron/Minerals/Multivitamins (Theragran M) 1 tab PO DAILY [facility] Last Admin: 03/03/18 10:24 Dose: 1 tab Metformin HCl (Glucophage) 500 mg PO DAILY [facility] Last Admin: 03/03/18 09:15 Dose: 500 mg Mineral Oil/White Petrolatum (Eucerin Cream) 0 gm TOP PRN PRN PRN Reason: Itching Miscellaneous Information (Communication Order-Pharmacy) 1 each FS ASDIR [facility] Miscellaneous Information (Communication Order-Pharmacy) 1 each FS ONE [facility] Stop: 03/05/18 12:01 Miscellaneous Information (Communication Order-Pharmacy) 1 each FS ONE [facility] Stop: 03/05/18 12:01 Naloxone HCl (Narcan) 0.2 mg IVP Q5MIN PRN PRN Reason: Opiate Reversal Naloxone HCl (Narcan) 0.1 mg IVP Q15MIN PRN PRN Reason: Urinary retention Ondansetron HCl (Zofran) 4 mg IVP Q6H PRN PRN Reason: Nausea/Vomiting Ondansetron HCl (Zofran) 4 mg IVP Q6H PRN PRN Reason: Nausea/Vomiting Pantoprazole Sodium (Protonix) 40 mg PO DAILY [facility] Last Admin: 03/03/18 10:56 Dose: 40 mg Pregabalin (Lyrica) 150 mg PO BID [facility] Last Admin: 03/03/18 10:24 Dose: 150 mg Promethazine HCl (Phenergan) 12.5 mg IM Q4H PRN PRN Reason: Nausea/Vomiting Promethazine HCl (Phenergan Suppository) 25 mg [place] Q4H PRN PRN Reason: Nausea/Vomiting Promethazine HCl (Phenergan) 12.5 mg SLOW IVP Q4H PRN PRN Reason: Nausea/Vomiting Rosuvastatin Calcium (Crestor) 20 mg PO [facility] Last Admin: 03/02/18 20:52 Dose: 20 mg Senna/Docusate Sodium (Senokot S) 2 tab PO BID [facility] Last Admin: 03/03/18 10:24 Dose: 2 tab Sodium Chloride (Flush - Normal Saline) 10 ml IVF PRN PRN PRN Reason: Saline Flush Tramadol HCl (Ultram) 50 mg PO Q6H PRN PRN Reason: Mild Pain 1-3 Tramadol HCl (Ultram) 100 mg PO Q6H PRN PRN Reason: Moderate Pain 4-6 Zolpidem Tartrate (Ambien) 5 mg PO HSPRN PRN PRN Reason: Insomnia
[2018-03-03 16:24] VITALS: BP 115/74
== END 2018-03-03 16:27 | DRG 470 ==
LOC: SJJU 02-28 07:09
PROVIDERS: ADMIT Orthopaedic Surgery; ATTEND Orthopaedic Surgery
PROC: 0SR902A Replacement of Right Hip Joint with Metal on Polyethylene Synthetic Substitute, Uncemented, Open Approach (ICD-10-PCS; principal; 2018-02-28)
DX: M16.11 Unilateral primary osteoarthritis, right hip (principal); I10 Essential (primary) hypertension; E11.9 Type 2 diabetes mellitus without complications; E78.5 Hyperlipidemia, unspecified; D50.0 Iron deficiency anemia secondary to blood loss (chronic); E66.9 Obesity, unspecified; M10.9 Gout, unspecified; Z96.651 Presence of right artificial knee joint; Z68.35 Body mass index [BMI] 35.0-35.9, adult; Z79.84 Long term (current) use of oral hypoglycemic drugs
CPT/HCPCS: 36415; 36416; 85027; C1776; G8978-GP-CK; G8979-GP-CJ; G8987-GO-CJ; G8988-GO-CI; J2001; J2250; J2405; J2704; J3010; J3370; J3490; J7050

== ENCOUNTER 2018-02-24 10:24 | Outpatient (CLI) | payer MEDICARE, OTHER ==
[2018-02-24 10:59] LABS: #Basophils 0.1 thou/uL (0.0-0.2); #Eosinphils 0.1 thou/uL (0.0-0.7); #Lymphocytes 2.5 thou/uL (1.20-3.40); #Monocytes 0.6 thou/uL (0.11-0.59); #Neutrophils 2.7 thou/uL (1.40-6.50); %Basophils 0.9 % (0.0-1.0); %Eosinophils 1.7 % (0.0-10.0); %Monocytes 10.2 % (0.0-10.0); %Neutrophils 45.2 % (42.0-75.0); Mean Corpuscular HGB CONC 33.8 g/dL (32.0-36.0); Mean Corpuscular Hemoglobin 29.5 pg (27.0-31.0); Mean Corpuscular Volume 87.2 fL (78.0-98.0); Mean Platelet Volume 7.3 fL (7.4-10.4); Platelet Count 223 thou/uL (130-400); Red Blood Cell (RBC) Count 5.08 mill/uL (4.70-6.10)
[2018-02-24 11:12] LABS: INR-International Normal Ratio 1.1; Prothrombin Time 14.3 SEC (12.0-14.7)
[2018-02-24 11:24] LABS: Anion Gap 13 mmol/L (10-20); BUN (Urea Nitrogen) 37 mg/dL (8.4-25.7); Calc. Creatinine Clearance 0 mL/min (70-130); Calcium 9.5 mg/dL (7.8-10.44); Carbon Dioxide 23 mmol/L (23-31); Chloride 106 mmol/L (98-107); Estimated GFR-MDRD 54; Glucose 133 mg/dL (80-115); Potassium 3.8 mmol/L (3.5-5.1); Sodium 138 mmol/L (136-145)
== END 2018-02-24 10:25 | disposition home or self-care (01) ==
LOC: LABBT 10:24
PROVIDERS: ATTEND Orthopaedic Surgery
DX: Z01.812 Encounter for preprocedural laboratory examination (principal); M16.11 Unilateral primary osteoarthritis, right hip
CPT/HCPCS: 80048; 85025; 85610; 86850; 86900; 86901

== ENCOUNTER 2018-11-22 09:38 | Outpatient (CLI) | payer MEDICARE, OTHER ==
--- NOTE | 2018-11-22 11:26 | MRI ---
[facility] THORACIC SPINE NONCONTRAST: CLINICAL HISTORY: Radiculopathy, back pain. FINDINGS: No prior imaging comparison is available. There is no acute marrow edema, compression deformity, or significant subluxation. Incidental note of multilevel cervical spine degenerative change. There are minimal multilevel disc osteophyte complexes throughout the upper to midthoracic spine whic h do not result in significant central canal stenosis or cord compression. T7-8 level reveals a left subarticular disc protrusion with mild resultant mass effect. There is mild left foraminal stenosis. T8-9 and T9-10 levels reveal no significant central canal or neural foraminal stenosis. T10-11 level reveals disc osteophyte complex, with mild effacement of the right ventral aspect of the thecal sac, and moderate left foraminal stenosis. No significant central canal or foraminal compromise of T11-12. No significant intrinsic cord signal abnormality is visualized. No expansile process of the thoracic spinal cord. 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 IMPRESSION: 1. Degenerative changes of the thoracic spine involving mid to lower aspect, as outlined above. No s ignificant cord signal abnormality is associated with the degenerative findings. 2. 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 As necessary, raj chapa imaging followup may be obtained for further evaluation. Transcribed Date/Time: 11/22/2018 11:43 AM
--- NOTE | 2018-11-22 13:01 | MRI ---
FNoncontrast enhanced MRI images lumbar spine: Low back pain. Comparison made to previous exam from 08/06/2016. T12-L1: Unremarkable. L1-2: There is a small central disc protrusion. The neural foramen are patent. L2-3: Bilateral facet and ligamentum flavum hypertrophy is seen. There is fluid seen in the facet lorenzo nts. The neural foramen are patent. L3-4: Disc desiccation seen. There is a mild broad-based disc bulge with bilateral facet and ligament um flavum hypertrophy resulting in moderate degree of central L3-4 spinal stenosis. There is mild annita ateral neural foraminal narrowing seen. L4-5: Disc desiccation seen. There is a broad-based central disc protrusion. Bilateral facet and liga mentum flavum hypertrophy is seen. This results in a moderate degree of central and lateral recess st enosis. There is moderate left and moderate to severe left-sided neural foraminal narrowing. L5-S1: Disc desiccation seen. Inferior endplate L5 and superior endplate S1 Modic type II changes see n. There is a broad-based central disc bulge minimally but does not significantly compressing the the luis a sac. Moderate bilateral facet hypertrophy is seen. Mild neural foraminal narrowing seen bilateral ly. IMPRESSION: Multilevel lumbar degenerative changes not significantly changed since the previous velvet rison exam. Transcribed Date/Time: 11/22/2018 1:04 PM
== END 2018-11-22 09:39 | disposition home or self-care (01) ==
LOC: TBSIIMAG 09:38
PROVIDERS: ATTEND Neurological Surgery
DX: M47.26 Other spondylosis with radiculopathy, lumbar region (principal); M47.24 Other spondylosis with radiculopathy, thoracic region
CPT/HCPCS: 72146; 72148

== ENCOUNTER 2020-11-01 09:09 | Outpatient (CLI) | payer MEDICARE, OTHER | END 2020-11-01 09:10 | disposition home or self-care (01) | LOC: TBSIIMAG 09:09 | PROVIDERS: ATTEND Orthopaedic Surgery | DX: M48.061 Spinal stenosis, lumbar region without neurogenic claudication (principal); M47.816 Spondylosis without myelopathy or radiculopathy, lumbar region | CPT/HCPCS: 72148 ==

== ENCOUNTER 2020-11-21 23:36 | Observation (INO) | payer MEDICARE, OTHER ==
[2020-11-22] MEDS ORDERED: Aspirin 325 MG TAB ONE (00:31)
[2020-11-22 00:58] LABS: Troponin I 0.082 ng/mL (< 0.028)
[2020-11-22 01:25] LABS: Bilirubin 1+ (Negative); Blood, Urine Negative (Negative); Clarity Clear (Clear); Glucose, Urine (Dipstick) Normal (Negative); Ketone, Urine Negative (Negative); Leukocyte Negative Leu/uL (Negative); Nitrite Negative (Negative); Protein, Urine (Dipstick) 20 mg/dL (Neg-Trace); Specific Gravity, Urine 1.027 (1.002-1.036); Urobilinogen Normal mg/dL (Less than 2); pH, Urine 5.5 (5.0-9.0)
[2020-11-22 01:32] LABS: SARS-CoV-2 NAA Rapid Test DETECTED (NotDetected)
[2020-11-22 03:28] VITALS: BMI 39.2
[2020-11-22] MEDS ORDERED: Lactated Ringer's 1,000 ML IV SCH (05:00)
[2020-11-22 06:00] LABS: Troponin I 0.087 ng/mL (< 0.028)
[2020-11-22] MEDS: Acetaminophen 325 MG TAB PO PRN ×3 (08:06→16:38)
[2020-11-22] MEDS ORDERED: Vancomycin HCl 2.5 GM in Sodium Chloride 0.9% 500 ML IVPB SCH (14:00)
[2020-11-22] MEDS: Heparin 5,000 UNITS/ML VIAL SC SCH ×2 (14:31→20:29)
[2020-11-22] MEDS: Cefepime 2 GM in Sodium Chloride 0.9% 100 ML IVPB SCH ×2 (14:31→22:21)
[2020-11-22 15:13] LABS: Bacteria/HPF None Seen HPF (None Seen); Bilirubin Negative (Negative); Blood, Urine Trace (Negative); Clarity Clear (Clear); Glucose, Urine (Dipstick) Normal (Negative); Ketone, Urine Trace mg/dL (Negative); Leukocyte Negative Leu/uL (Negative); Nitrite Negative (Negative); Protein, Urine (Dipstick) 30 mg/dL (Neg-Trace); RBC/HPF 0-3 HPF (0-3); Specific Gravity, Urine 1.025 (1.002-1.036); Squamous Epithelial None Seen HPF (0-3); Urobilinogen Normal mg/dL (Less than 2); WBC/HPF 0-3 HPF (0-3); pH, Urine 5.5 (5.0-9.0)
[2020-11-23] MEDS: Acetaminophen 325 MG TAB PO PRN (03:33)
[2020-11-23] MEDS ORDERED: VANCOMYCIN 2 GRAM/400 ML BAG 2 GM in Premix Bag 1 BAG IVPB SCH (04:00)
[2020-11-23] MEDS: Cefepime 2 GM in Sodium Chloride 0.9% 100 ML IVPB SCH (05:37)
[2020-11-23] MEDS ORDERED: Dexamethasone 4 mg/ml Vial SLOW IVP SCH (09:30)
[2020-11-23 09:40] LABS: #Lymphocytes 1.5 thou/uL (1.20-3.40); #Monocytes 0.4 thou/uL (0.11-0.59); #Neutrophils 5.5 thou/uL (1.40-6.50); %Basophils 0.2 % (0.0-1.0); %Eosinophils 0.1 % (0.0-10.0); %Lymphocytes 19.8 % (21.0-51.0); %Monocytes 5.6 % (0.0-10.0); %Neutrophils 74.3 % (42.0-75.0); Hemoglobin 14.3 g/dL (14.0-18.0); Mean Corpuscular HGB CONC 32.4 g/dL (32.0-36.0); Mean Corpuscular Hemoglobin 29.3 pg (27.0-31.0); Mean Corpuscular Volume 90.6 fL (78.0-98.0); Mean Platelet Volume 7.7 fL (7.4-10.4); Platelet Count 151 thou/uL (130-400); RBC Distribution Width 13.4 % (11.5-14.5); Red Blood Cell (RBC) Count 4.88 mill/uL (4.70-6.10); White Blood Cell (WBC) Count 7.4 thou/uL (4.8-10.8)
[2020-11-23 09:48] LABS: INR-International Normal Ratio 1.1; Prothrombin Time 14.6 sec (12.0-14.7)
[2020-11-23 09:59] LABS: Anion Gap 17 mmol/L (10-20); BUN (Urea Nitrogen) 17 mg/dL (8.4-25.7); Calc. Creatinine Clearance 96 mL/min (70-130); Calcium 8.5 mg/dL (7.8-10.44); Carbon Dioxide 19 mmol/L (23-31); Chloride 106 mmol/L (98-107); Glucose 142 mg/dL (80-115); Potassium 3.7 mmol/L (3.5-5.1); Sodium 138 mmol/L (136-145)
[2020-11-23 10:49] LABS: INR-International Normal Ratio 1.1; PTT 33.7 sec (22.9-36.1); Prothrombin Time 14.5 sec (12.0-14.7)
[2020-11-23 11:00] LABS: Anion Gap 14 mmol/L (10-20); BUN (Urea Nitrogen) 16 mg/dL (8.4-25.7); Calc. Creatinine Clearance 103 mL/min (70-130); Calcium 8.4 mg/dL (7.8-10.44); Carbon Dioxide 20 mmol/L (23-31); Chloride 106 mmol/L (98-107); Glucose 185 mg/dL (80-115); Potassium 3.8 mmol/L (3.5-5.1); Sodium 136 mmol/L (136-145)
[2020-11-23] MEDS: Heparin 5,000 UNITS/ML VIAL SC SCH (12:13)
[2020-11-23 12:27] VITALS: BP 134/76; TEMP 100.5
[2020-11-24] MEDS ORDERED: Dexamethasone 4 mg/ml Vial SLOW IVP SCH (09:00)
== END 2020-11-23 16:41 | disposition home or self-care (01) ==
LOC: ERS 23:36 → 2SW 11-22 01:43
PROVIDERS: ADMIT Student in an Organized Health Care Education/Training Program; ATTEND Internal Medicine
DX: U07.1 COVID-19 (principal); E11.9 Type 2 diabetes mellitus without complications; E78.5 Hyperlipidemia, unspecified; I10 Essential (primary) hypertension; N40.0 Benign prostatic hyperplasia without lower urinary tract symptoms; K21.9 Gastro-esophageal reflux disease without esophagitis; G89.29 Other chronic pain; M54.9 Dorsalgia, unspecified; F17.220 Nicotine dependence, chewing tobacco, uncomplicated; E66.9 Obesity, unspecified; Z68.39 Body mass index [BMI] 39.0-39.9, adult; Z79.82 Long term (current) use of aspirin; Z79.899 Other long term (current) drug therapy
CPT/HCPCS: 80048 ×2; 81001; 81003; 82962 ×2; 83605; 84145; 84484 ×2; 85025; 85610 ×2; 85730; 87040 ×2; 99285; U0002; 36415; 36416; 96365; 96366; 96367; 96372; 96375; 96376; G0378; J0692; J1100; J1644; J3370; J3490; J7030

== ENCOUNTER 2020-12-09 09:35 | Outpatient (CLI) | payer MEDICARE, OTHER | END 2020-12-09 09:36 | disposition home or self-care (01) | LOC: TBSIIMAG 09:35 | PROVIDERS: ATTEND Neurological Surgery | DX: M47.26 Other spondylosis with radiculopathy, lumbar region (principal); M25.559 Pain in unspecified hip | CPT/HCPCS: 72131 ==

== ENCOUNTER 2021-03-12 06:12 | Day surgery (SDC) | payer MEDICARE, OTHER | END 2021-03-12 11:51 | disposition home or self-care (01) | LOC: SDC 06:12 | PROVIDERS: ATTEND Neurological Surgery | PROC: 01NB0ZZ Release Lumbar Nerve, Open Approach (ICD-10-PCS; principal; 2021-03-12) | PROC: 01NR0ZZ Release Sacral Nerve, Open Approach (ICD-10-PCS; 2021-03-12) | DX: M48.061 Spinal stenosis, lumbar region without neurogenic claudication (principal); M54.16 Radiculopathy, lumbar region; E11.9 Type 2 diabetes mellitus without complications; I10 Essential (primary) hypertension; Z79.84 Long term (current) use of oral hypoglycemic drugs; Z79.82 Long term (current) use of aspirin; Z79.899 Other long term (current) drug therapy; Z96.651 Presence of right artificial knee joint; Z98.890 Other specified postprocedural states; Z96.659 Presence of unspecified artificial knee joint; Z96.649 Presence of unspecified artificial hip joint | CPT/HCPCS: 76000; J0171; J0690; J1100; J1170; J1885; J2001; J2405; J2704; J3010; S0020 ==

== ENCOUNTER 2021-09-02 13:53 | Outpatient (CLI) | payer MEDICARE, OTHER | END 2021-09-02 13:54 | disposition home or self-care (01) | LOC: BICULT 13:53 | PROVIDERS: ATTEND Family Medicine | DX: R60.0 Localized edema (principal); M92.521 Juvenile osteochondrosis of tibia tubercle, right leg ==

== ENCOUNTER 2021-12-10 14:30 | Inpatient (IN) | payer MEDICARE, OTHER, MEDICAID ==
[2021-12-10 15:15] VITALS: BMI 38.7
[2021-12-15] MEDS ORDERED: Tranexamic Acid 1,000 MG/10 ML VIAL ONE (07:34)
[2021-12-15] MEDS ORDERED: Sodium Chloride 0.9% 100 ML ONE (07:34)
[2021-12-15] MEDS ORDERED: Fentanyl 100 MCG/2 ML VIAL ONE ×2 (08:42→11:59)
[2021-12-15] MEDS ORDERED: Midazolam HCl 2 mg/2 ml Vial ONE ×2 (08:42→10:33)
[2021-12-15] MEDS ORDERED: Bupivacaine PF 0.5% 30 ML VIAL ONE (08:50)
[2021-12-15] MEDS ORDERED: diphenhydrAMINE 25 MG CAP PO PRN (09:08)
[2021-12-15] MEDS ORDERED: Promethazine HCl 25 MG/ML VIAL IM PRN ×2 (09:08→11:48)
[2021-12-15] MEDS ORDERED: HYDROcodone/Acetaminophen 10/325 mg Tablet PO PRN (09:08)
[2021-12-15] MEDS ORDERED: Zolpidem Tartrate 5 MG TAB PO PRN (09:08)
[2021-12-15] MEDS ORDERED: Fentanyl 100 MCG/2 ML VIAL SLOW IVP PRN ×2 (09:08)
[2021-12-15] MEDS ORDERED: Ondansetron PF 4 MG/2 ML Vial IVP PRN (09:08)
[2021-12-15] MEDS ORDERED: Acetaminophen 325 MG TAB PO PRN (09:10)
[2021-12-15] MEDS ORDERED: ceFAZolin (BATCH) 2 GM/100 ML BAG ONE (09:11)
[2021-12-15] MEDS ORDERED: Propofol 1,000 MG/100 ML VIAL IV ONE (09:11)
[2021-12-15] MEDS ORDERED: Ondansetron PF 4 MG/2 ML Vial ONE (09:40)
[2021-12-15] MEDS ORDERED: Bupivacaine HCl 0.5%/Epinephrine 1:200,000/PF 30 ml Vial ONE (09:40)
[2021-12-15] MEDS ORDERED: Promethazine HCl 25 MG/ML VIAL IVPB PRN (11:48)
[2021-12-15] MEDS ORDERED: Ondansetron HCl/PF 4 MG/2 ML Vial IVP PRN (11:48)
[2021-12-15] MEDS: HYDROcodone/Acetaminophen 10/325 mg Tablet PO PRN ×2 (13:52→20:01)
[2021-12-15] MEDS: Sodium Chloride 0.9% 1,000 ML IV SCH ×2 (15:09→17:52)
[2021-12-15] MEDS ORDERED: hydrALAZINE 20 MG/ML VIAL SLOW IVP PRN (16:45)
[2021-12-15] MEDS: metFORMIN 500 MG TAB PO SCH (17:49)
[2021-12-15] MEDS: Icosapent Ethyl 1 GM CAPSULE PO SCH (17:49)
[2021-12-15] MEDS: ceFAZolin (BATCH) 2 GM in Premix Bag 1 BAG IVPB SCH (17:50)
[2021-12-15] MEDS: Aspirin 81 mg Enteric Coated Tablet PO SCH (20:01)
[2021-12-15] MEDS: Rosuvastatin 20 MG TAB PO SCH (20:01)
[2021-12-15] MEDS: Pregabalin 75 MG CAP PO SCH (20:01)
[2021-12-16] MEDS: ceFAZolin (BATCH) 2 GM in Premix Bag 1 BAG IVPB SCH (00:28)
[2021-12-16] MEDS: HYDROcodone/Acetaminophen 10/325 mg Tablet PO PRN ×4 (00:28→21:45)
[2021-12-16] MEDS: Sodium Chloride 0.9% 1,000 ML IV SCH ×2 (01:36→16:43)
[2021-12-16 06:37] LABS: Hemoglobin 13.2 g/dL (14.0-18.0); Mean Corpuscular HGB CONC 33.3 g/dL (32.0-36.0); Mean Corpuscular Hemoglobin 30.3 pg (27.0-31.0); Mean Corpuscular Volume 90.8 fL (78.0-98.0); Mean Platelet Volume 7.6 fL (7.4-10.4); Platelet Count 210 thou/uL (130-400); RBC Distribution Width 13.9 % (11.5-14.5); Red Blood Cell (RBC) Count 4.37 mill/uL (4.70-6.10); White Blood Cell (WBC) Count 8.4 thou/uL (4.8-10.8)
[2021-12-16 06:53] LABS: Anion Gap 13 mmol/L (10-20); BUN (Urea Nitrogen) 29 mg/dL (8.4-25.7); Calc. Creatinine Clearance 99 mL/min (70-130); Calcium 8.8 mg/dL (7.8-10.44); Carbon Dioxide 23 mmol/L (23-31); Chloride 107 mmol/L (98-107); Glucose 139 mg/dL (80-115); Potassium 4.5 mmol/L (3.5-5.1); Sodium 138 mmol/L (136-145)
[2021-12-16] MEDS: NIFEdipine XL 60 MG TAB PO SCH (08:30)
[2021-12-16] MEDS: Icosapent Ethyl 1 GM CAPSULE PO SCH ×2 (08:30→17:43)
[2021-12-16] MEDS: metFORMIN 500 MG TAB PO SCH ×2 (08:31→17:43)
[2021-12-16] MEDS: Pregabalin 75 MG CAP PO SCH ×2 (08:31→21:45)
[2021-12-16] MEDS: Ferrous Gluconate 324 MG TAB PO SCH ×2 (08:31→17:43)
[2021-12-16] MEDS: Hydrochlorothiazide 25 MG TAB PO SCH (08:31)
[2021-12-16] MEDS: Tamsulosin HCl 0.4 MG CAP PO SCH (08:31)
[2021-12-16] MEDS: Multivitamin W/ Minerals 1 TAB PO SCH (08:31)
[2021-12-16] MEDS: Aspirin 81 mg Enteric Coated Tablet PO SCH ×2 (12:11→21:46)
[2021-12-16] MEDS: Senokot S 8.6-50 MG TAB PO SCH ×2 (13:40→19:38)
[2021-12-16] MEDS: Rosuvastatin 20 MG TAB PO SCH (21:45)
[2021-12-16] MEDS: Heparin 5,000 UNITS/ML VIAL SC SCH (21:46)
[2021-12-17] MEDS: Sodium Chloride 0.9% 1,000 ML IV SCH ×3 (00:18→23:14)
[2021-12-17] MEDS: Acetaminophen 325 MG TAB PO PRN (04:56)
[2021-12-17 07:22] LABS: #Basophils 0.1 thou/uL (0.0-0.2); #Lymphocytes 2.9 thou/uL (1.20-3.40); #Monocytes 1.5 thou/uL (0.11-0.59); #Neutrophils 6.6 thou/uL (1.40-6.50); %Basophils 0.5 % (0.0-1.0); %Eosinophils 0.4 % (0.0-10.0); %Lymphocytes 26.3 % (21.0-51.0); %Monocytes 13.6 % (0.0-10.0); %Neutrophils 59.2 % (42.0-75.0); Hemoglobin 14.1 g/dL (14.0-18.0); Mean Corpuscular HGB CONC 32.8 g/dL (32.0-36.0); Mean Corpuscular Hemoglobin 29.8 pg (27.0-31.0); Mean Corpuscular Volume 90.8 fL (78.0-98.0); Mean Platelet Volume 7.9 fL (7.4-10.4); Platelet Count 210 thou/uL (130-400); RBC Distribution Width 13.9 % (11.5-14.5); Red Blood Cell (RBC) Count 4.74 mill/uL (4.70-6.10); White Blood Cell (WBC) Count 11.1 thou/uL (4.8-10.8)
[2021-12-17 07:44] LABS: Anion Gap 15 mmol/L (10-20); BUN (Urea Nitrogen) 22 mg/dL (8.4-25.7); Calc. Creatinine Clearance 99 mL/min (70-130); Calcium 9.4 mg/dL (7.8-10.44); Carbon Dioxide 24 mmol/L (23-31); Chloride 103 mmol/L (98-107); Glucose 158 mg/dL (80-115); Potassium 4.3 mmol/L (3.5-5.1); Sodium 138 mmol/L (136-145)
[2021-12-17] MEDS: metFORMIN 500 MG TAB PO SCH ×2 (07:45→18:16)
[2021-12-17] MEDS: Heparin 5,000 UNITS/ML VIAL SC SCH ×2 (07:45→20:22)
[2021-12-17] MEDS: Hydrochlorothiazide 25 MG TAB PO SCH (07:45)
[2021-12-17] MEDS: Pregabalin 75 MG CAP PO SCH ×2 (07:45→20:22)
[2021-12-17] MEDS: Icosapent Ethyl 1 GM CAPSULE PO SCH ×2 (07:45→18:15)
[2021-12-17] MEDS: NIFEdipine XL 60 MG TAB PO SCH (07:46)
[2021-12-17] MEDS: Aspirin 81 mg Enteric Coated Tablet PO SCH ×2 (07:46→20:22)
[2021-12-17] MEDS: Multivitamin W/ Minerals 1 TAB PO SCH (07:46)
[2021-12-17] MEDS: Tamsulosin HCl 0.4 MG CAP PO SCH (07:46)
[2021-12-17] MEDS: Ferrous Gluconate 324 MG TAB PO SCH ×2 (07:46→18:17)
[2021-12-17] MEDS ORDERED: Piperacillin/Tazobactam 3.375 GM in Sodium Chloride 0.9% 100 ML IVPB SCH ×3 (10:00→19:00)
[2021-12-17] MEDS: HYDROcodone/Acetaminophen 10/325 mg Tablet PO PRN ×2 (11:26→22:29)
[2021-12-17] MEDS: Senokot S 8.6-50 MG TAB PO SCH ×2 (11:27→20:23)
[2021-12-17] MEDS: Rosuvastatin 20 MG TAB PO SCH (20:22)
[2021-12-17] MEDS ORDERED: Vancomycin HCl 1.25 GM in Sodium Chloride 0.9% 250 ML 250 ML IVPB SCH (21:00)
[2021-12-17] MEDS ORDERED: Vancomycin HCl 2 GM, Admixture Fee 1 EACH in Sodium Chloride 0.9% 500 ML IVPB SCH (21:00)
[2021-12-17] MEDS: Vancomycin HCl 2 GM, Admixture Fee 1 EACH in Sodium Chloride 0.9% 500 ML IVPB SCH (22:29)
[2021-12-18] MEDS: Piperacillin/Tazobactam 3.375 GM in Sodium Chloride 0.9% 100 ML IVPB SCH ×3 (02:14→18:22)
[2021-12-18] MEDS: HYDROcodone/Acetaminophen 10/325 mg Tablet PO PRN ×3 (05:30→20:15)
[2021-12-18] MEDS: Sodium Chloride 0.9% 1,000 ML IV SCH ×3 (05:38→20:22)
[2021-12-18] MEDS: NIFEdipine XL 60 MG TAB PO SCH (08:32)
[2021-12-18] MEDS: metFORMIN 500 MG TAB PO SCH ×2 (08:32→18:22)
[2021-12-18] MEDS: Ferrous Gluconate 324 MG TAB PO SCH ×2 (08:32→18:22)
[2021-12-18] MEDS: Pregabalin 75 MG CAP PO SCH ×2 (08:33→20:15)
[2021-12-18] MEDS: Senokot S 8.6-50 MG TAB PO SCH ×2 (08:34→20:16)
[2021-12-18] MEDS: Icosapent Ethyl 1 GM CAPSULE PO SCH ×2 (08:35→18:22)
[2021-12-18] MEDS: Multivitamin W/ Minerals 1 TAB PO SCH (08:35)
[2021-12-18] MEDS: Hydrochlorothiazide 25 MG TAB PO SCH (08:35)
[2021-12-18] MEDS: Aspirin 81 mg Enteric Coated Tablet PO SCH ×2 (08:35→20:15)
[2021-12-18] MEDS: Tamsulosin HCl 0.4 MG CAP PO SCH (08:35)
[2021-12-18] MEDS: Heparin 5,000 UNITS/ML VIAL SC SCH ×2 (08:36→20:16)
[2021-12-18] MEDS: Vancomycin HCl 2 GM, Admixture Fee 1 EACH in Sodium Chloride 0.9% 500 ML IVPB SCH (13:12)
[2021-12-18] MEDS: Rosuvastatin 20 MG TAB PO SCH (20:16)
[2021-12-18] MEDS ORDERED: Colchicine 0.6 MG TAB PO SCH (21:00)
[2021-12-19] MEDS: Piperacillin/Tazobactam 3.375 GM in Sodium Chloride 0.9% 100 ML IVPB SCH ×2 (01:27→10:09)
[2021-12-19] MEDS: Acetaminophen 325 MG TAB PO PRN ×2 (01:33→05:28)
[2021-12-19] MEDS ORDERED: Colchicine 0.6 MG TAB PO SCH (09:00)
[2021-12-19] MEDS: NIFEdipine XL 60 MG TAB PO SCH (09:30)
[2021-12-19] MEDS: metFORMIN 500 MG TAB PO SCH (09:31)
[2021-12-19] MEDS: Senokot S 8.6-50 MG TAB PO SCH (09:31)
[2021-12-19 09:32] LABS: Vancomycin, Trough 2.7 ug/mL
[2021-12-19] MEDS: Pregabalin 75 MG CAP PO SCH (09:32)
[2021-12-19] MEDS: Ferrous Gluconate 324 MG TAB PO SCH (09:32)
[2021-12-19] MEDS: Tamsulosin HCl 0.4 MG CAP PO SCH (09:32)
[2021-12-19] MEDS: Aspirin 81 mg Enteric Coated Tablet PO SCH (09:32)
[2021-12-19] MEDS: Hydrochlorothiazide 25 MG TAB PO SCH (09:32)
[2021-12-19] MEDS: Multivitamin W/ Minerals 1 TAB PO SCH (09:33)
[2021-12-19] MEDS: Icosapent Ethyl 1 GM CAPSULE PO SCH (09:33)
[2021-12-19] MEDS: Heparin 5,000 UNITS/ML VIAL SC SCH (09:33)
[2021-12-19] MEDS: HYDROcodone/Acetaminophen 10/325 mg Tablet PO PRN (09:38)
[2021-12-19 10:18] LABS: #Basophils 0.1 thou/uL (0.0-0.2); #Eosinphils 0.1 thou/uL (0.0-0.7); #Lymphocytes 2.4 thou/uL (1.20-3.40); #Monocytes 0.8 thou/uL (0.11-0.59); #Neutrophils 5.6 thou/uL (1.40-6.50); %Basophils 0.6 % (0.0-1.0); %Eosinophils 0.9 % (0.0-10.0); %Monocytes 9.4 % (0.0-10.0); %Neutrophils 62.1 % (42.0-75.0); Hemoglobin 13.9 g/dL (14.0-18.0); Mean Corpuscular HGB CONC 32.9 g/dL (32.0-36.0); Mean Platelet Volume 7.2 fL (7.4-10.4); Platelet Count 282 thou/uL (130-400); RBC Distribution Width 13.8 % (11.5-14.5); Red Blood Cell (RBC) Count 4.62 mill/uL (4.70-6.10); White Blood Cell (WBC) Count 8.9 thou/uL (4.8-10.8)
[2021-12-19 10:33] LABS: Anion Gap 20 mmol/L (10-20); BUN (Urea Nitrogen) 27 mg/dL (8.4-25.7); Calc. Creatinine Clearance 85 mL/min (70-130); Calcium 9.6 mg/dL (7.8-10.44); Carbon Dioxide 20 mmol/L (23-31); Chloride 102 mmol/L (98-107); Glucose 189 mg/dL (80-115); Potassium 3.8 mmol/L (3.5-5.1); Sodium 138 mmol/L (136-145)
[2021-12-19 12:24] VITALS: BP 146/80; TEMP 98.8
== END 2021-12-19 15:50 | disposition swing bed (61) | DRG 467 ==
LOC: SURG A 12-15 07:23 → SURG B 12-15 12:47
PROVIDERS: ADMIT Orthopaedic Surgery; ATTEND Hospitalist
PROC: 0SP909Z Removal of Liner from Right Hip Joint, Open Approach (ICD-10-PCS; principal; 2021-12-15)
PROC: 0SUA09Z Supplement Right Hip Joint, Acetabular Surface with Liner, Open Approach (ICD-10-PCS; 2021-12-15)
DX: T84.030A Mechanical loosening of internal right hip prosthetic joint, initial encounter (principal); N17.9 Acute kidney failure, unspecified; I10 Essential (primary) hypertension; E11.9 Type 2 diabetes mellitus without complications; E78.5 Hyperlipidemia, unspecified; N40.0 Benign prostatic hyperplasia without lower urinary tract symptoms; E66.01 Morbid (severe) obesity due to excess calories; E88.81 Metabolic syndrome and other insulin resistance; D72.829 Elevated white blood cell count, unspecified; Y83.8 Other surgical procedures as the cause of abnormal reaction of the patient, or of later complication, without mention of misadventure at the time of the procedure; M10.9 Gout, unspecified; D72.0 Genetic anomalies of leukocytes; Z79.899 Other long term (current) drug therapy; Z98.890 Other specified postprocedural states; Z68.38 Body mass index [BMI] 38.0-38.9, adult
CPT/HCPCS: 36415; 36416; 80048; 80202; 84550; 85025; 85027; 87040; 87070; 87205; 93970; C1713; C1776; J0690; J1644; J2250; J2405; J2543; J2704; J3010; J3370; J3490; J7030; J7050; S0020

== ENCOUNTER 2024-07-13 13:15 | Outpatient (CLI) | payer MEDICARE | END 2024-07-13 13:16 | disposition home or self-care (01) | LOC: CT 13:15 | PROVIDERS: ATTEND Orthopaedic Surgery | DX: M17.12 Unilateral primary osteoarthritis, left knee (principal) ==

== ENCOUNTER → 2024-07-19 | Outpatient (CLI) | payer MEDICARE ==
[2024-07-24 06:40] LABS: Anion Gap 17 mmol/L (10-20); BUN (Urea Nitrogen) 50 mg/dL (8.4-25.7); Calc. Creatinine Clearance 0 mL/min (70-130); Calcium 9.7 mg/dL (7.8-10.44); Carbon Dioxide 19 mmol/L (23-31); Chloride 108 mmol/L (98-107); Estimated GFR 25; Glucose 249 mg/dL (83-110); Potassium 4.6 mmol/L (3.5-5.1); Sodium 139 mmol/L (136-145)
[2024-07-24 06:51] LABS: Hematocrit 38.8 % (42.0-52.0); Hemoglobin 12.7 g/dL (14.0-18.0); Red Blood Cell (RBC) Count 4.35 mill/uL (4.70-6.10); White Blood Cell (WBC) Count 6.55 10x3/uL (4.8-10.8)
[2024-07-24 06:52] LABS: %Lymphocytes 36.2 % (21.0-51.0); %Monocytes 9.9 % (0.0-10.0); %Neutrophils 51.6 % (42.0-75.0); Mean Corpuscular HGB CONC 32.7 g/dL (32.0-36.0); Mean Corpuscular Hemoglobin 29.2 pg (27.0-31.0); Mean Corpuscular Volume 89.2 fL (78.0-98.0); Mean Platelet Volume 10.4 fL (7.4-10.4); Platelet Count 203 10x3/uL (130-400); RBC Distribution Width 14.9 % (11.5-14.5)
[2024-07-24 06:53] LABS: #Basophils 0.04 10x3/uL (0.0-0.2); #Eosinophils 0.09 10x3/uL (0.0-0.7); #Monocytes 0.65 10x3/uL (0.11-0.59); #Neutrophils 3.38 10x3/uL (1.40-6.50); %Basophils 0.6 % (0.0-1.0); %Eosinophils 1.4 % (0.0-10.0)
[2024-07-24 06:57] LABS: Bilirubin Negative (Negative); Blood, Urine Negative (Negative); Clarity Clear (Clear); Glucose, Urine (Dipstick) Normal (Negative); Ketone, Urine Negative (Negative); Leukocyte Negative Leu/uL (Negative); Nitrite Negative (Negative); Protein, Urine (Dipstick) Negative (Neg-Trace); Specific Gravity, Urine 1.011 (1.002-1.036); Urobilinogen Normal mg/dL (Less than 2)
[2024-07-26 09:53] LABS: INR-International Normal Ratio 1.1; Prothrombin Time 14.5 sec (12.0-14.7)
== END ==
LOC: LABBT 10:26
PROVIDERS: ATTEND Orthopaedic Surgery
DX: Z01.818 Encounter for other preprocedural examination (principal); M17.12 Unilateral primary osteoarthritis, left knee
CPT/HCPCS: 71046; 80048; 81001; 85025; 85610; 87081

== ENCOUNTER 2024-07-24 05:44 | Inpatient (IN) | payer MEDICARE ==
[2024-07-24] MEDS ORDERED: Midazolam HCl 2 mg/2 ml Vial ONE (06:17)
[2024-07-24] MEDS ORDERED: fentaNYL PF 100 MCG/2 ML SYRINGE ONE (06:17)
[2024-07-24] MEDS ORDERED: PROPOFOL 20 ML ONE ×2 (06:17→06:22)
[2024-07-24] MEDS ORDERED: Bupivacaine PF 0.5% 30 ML VIAL ONE ×2 (06:24→07:52)
[2024-07-24] MEDS ORDERED: Sodium Chloride 0.9% 100 ML ONE (06:37)
[2024-07-24] MEDS ORDERED: Tranexamic Acid 1,000 MG/10 ML VIAL ONE ×2 (06:37→09:35)
[2024-07-24 06:43] LABS: #Basophils 0.03 10x3/uL (0.0-0.2); %Basophils 0.5 % (0.0-1.0); %Monocytes 11.4 % (0.0-10.0); %Neutrophils 45.8 % (42.0-75.0); Hematocrit 36.9 % (42.0-52.0); Hemoglobin 12.1 g/dL (14.0-18.0); Mean Corpuscular HGB CONC 32.8 g/dL (32.0-36.0); Mean Corpuscular Hemoglobin 28.8 pg (27.0-31.0); Mean Corpuscular Volume 87.9 fL (78.0-98.0); Mean Platelet Volume 10.7 fL (7.4-10.4); Platelet Count 210 10x3/uL (130-400); RBC Distribution Width 15.2 % (11.5-14.5)
[2024-07-24] MEDS ORDERED: CEFAZOLIN 2 GM VIAL ONE (06:58)
[2024-07-24 07:00] LABS: Anion Gap 15 mmol/L (10-20); BUN (Urea Nitrogen) 40 mg/dL (8.4-25.7); Calc. Creatinine Clearance 0 mL/min (70-130); Calcium 9.3 mg/dL (7.8-10.44); Carbon Dioxide 22 mmol/L (23-31); Chloride 105 mmol/L (98-107); Estimated GFR 28; Glucose 276 mg/dL (83-110); Potassium 4.4 mmol/L (3.5-5.1); Sodium 138 mmol/L (136-145)
[2024-07-24 07:16] LABS: INR-International Normal Ratio 1.1; Prothrombin Time 14.1 sec (12.0-14.7)
[2024-07-24] MEDS ORDERED: ePHEDrine Sulfate 50 MG/10 ML VIAL ONE (07:27)
[2024-07-24] MEDS ORDERED: HYDROmorphone 2 MG/ML VIAL ONE (07:32)
[2024-07-24] MEDS ORDERED: PHENYLEPHRINE-NS 100 MCG/ML 10 ML SYRINGE ONE ×2 (07:39→09:04)
[2024-07-24] MEDS ORDERED: Promethazine HCl 25 MG/ML VIAL IM PRN ×2 (07:45→08:58)
[2024-07-24] MEDS ORDERED: fentaNYL 50 mcg/mL 1 mL Vial SLOW IVP PRN (07:45)
[2024-07-24] MEDS ORDERED: traMADol HCl 50 MG TAB PO PRN ×2 (07:45)
[2024-07-24] MEDS ORDERED: Ropivacaine 0.2% 550 ML 550 ML NERVE BLCK SCH (07:45)
[2024-07-24] MEDS ORDERED: HYDROcodone/Acetaminophen 10/325 mg Tablet PO PRN (07:45)
[2024-07-24] MEDS ORDERED: EPINEPHrine 1 MG/ML VIAL ONE (07:51)
[2024-07-24] MEDS ORDERED: Lidocaine 1% (PF) 30 ML VIAL ONE (07:52)
[2024-07-24] MEDS ORDERED: Ondansetron HCl/PF 4 MG/2 ML Vial IVP PRN (08:06)
[2024-07-24] MEDS ORDERED: Zolpidem Tartrate 5 MG TAB PO PRN (08:58)
[2024-07-24] MEDS ORDERED: diphenhydrAMINE 25 MG CAP PO PRN (08:58)
[2024-07-24] MEDS ORDERED: Ondansetron PF 4 MG/2 ML Vial IVP PRN (08:58)
[2024-07-24] MEDS ORDERED: Tranexamic Acid 1,000 MG in Sodium Chloride 0.9% 100 ML IVPB SCH (09:00)
[2024-07-24] MEDS ORDERED: Ondansetron PF 4 MG/2 ML Vial ONE (09:03)
[2024-07-24] MEDS ORDERED: Glycopyrrolate 0.2 MG/ML 5 ML SYRINGE ONE (09:04)
[2024-07-24] MEDS ORDERED: HYDROmorphone 0.5 MG/0.5 ML SYRINGE ONE (09:36)
[2024-07-24] MEDS: Sodium Chloride 0.9% 1,000 ML IV SCH (12:39)
[2024-07-24] MEDS: Vancomycin (BATCH) 2 GM in Premix 1 BAG IVPB SCH (12:39)
[2024-07-24] MEDS ORDERED: Dextrose 50% Abboject 50 ML SYRINGE SLOW IVP PRN (12:43)
[2024-07-24] MEDS ORDERED: Dextrose 5% in Water 1,000 ML IV PRN (12:43)
[2024-07-24] MEDS ORDERED: Glucagon 1 MG/ML KIT IM PRN (12:43)
[2024-07-24] MEDS: HYDROcodone/Acetaminophen 10/325 mg Tablet PO PRN (12:46)
[2024-07-24] MEDS: CEFAZOLIN 2 GM in Sodium Chloride 0.9% 100 ML IVPB SCH (14:42)
[2024-07-24 15:51] VITALS: BMI 37.0
[2024-07-24] MEDS: Carvedilol 25 MG TAB PO SCH (18:03)
[2024-07-24] MEDS: Vancomycin 1 GM in Premix 1 BAG IVPB SCH (18:03)
[2024-07-24] MEDS: Icosapent Ethyl 1 GM CAPSULE PO SCH (18:03)
[2024-07-24] MEDS: Rosuvastatin 20 MG TAB PO SCH (20:47)
[2024-07-24] MEDS: Ferrous Gluconate 324 MG TAB PO SCH (20:48)
[2024-07-24] MEDS: Aspirin 81 mg Enteric Coated Tablet PO SCH (20:48)
[2024-07-24] MEDS: Tamsulosin HCl 0.4 MG CAP PO SCH (20:48)
[2024-07-24] MEDS: Insulin Glargine 30 UNITS/0.3 ML VIAL SC SCH (20:50)
[2024-07-24] MEDS: Senokot S 8.6-50 MG TAB PO SCH (21:00)
[2024-07-24] MEDS: Acetaminophen 325 MG TAB PO PRN (23:11)
[2024-07-25] MEDS: Insulin Lispro 100 UNIT/ML 10 ML VIAL SC PRN ×2 (06:40→20:36)
[2024-07-25 06:48] LABS: Hematocrit 35.8 % (42.0-52.0); Hemoglobin 11.6 g/dL (14.0-18.0); Mean Corpuscular HGB CONC 32.4 g/dL (32.0-36.0); Mean Corpuscular Hemoglobin 28.6 pg (27.0-31.0); Mean Corpuscular Volume 88.4 fL (78.0-98.0); Mean Platelet Volume 10.4 fL (7.4-10.4); Platelet Count 171 10x3/uL (130-400); RBC Distribution Width 15.2 % (11.5-14.5); Red Blood Cell (RBC) Count 4.05 mill/uL (4.70-6.10)
[2024-07-25 07:04] LABS: Anion Gap 14 mmol/L (10-20); BUN (Urea Nitrogen) 33 mg/dL (8.4-25.7); Calc. Creatinine Clearance 51 mL/min (70-130); Calcium 8.4 mg/dL (7.8-10.44); Carbon Dioxide 22 mmol/L (23-31); Chloride 102 mmol/L (98-107); Estimated GFR 27; Glucose 228 mg/dL (83-110); Potassium 4.1 mmol/L (3.5-5.1); Sodium 134 mmol/L (136-145)
[2024-07-25] MEDS: Multivitamin W/ Minerals 1 TAB PO SCH (07:29)
[2024-07-25] MEDS: Pantoprazole DR 40 MG TAB PO SCH (07:29)
[2024-07-25] MEDS: Gabapentin 300 MG CAP PO SCH (07:29)
[2024-07-25] MEDS: Furosemide 40 MG TAB PO SCH (07:30)
[2024-07-25] MEDS: Insulin Lispro 100 UNIT/ML 10 ML VIAL SQ SCH (08:05)
[2024-07-25] MEDS: FLU (Fluad Triv) TS24-25 (65UP)/MF59C/PF 45 MCG/0.5 ML Syringe IM ONE (17:26)
[2024-07-26 06:39] LABS: #Basophils Less than 0.03 10x3/uL (0.0-0.2); %Basophils 0.2 % (0.0-1.0); %Eosinophils 0.3 % (0.0-10.0); %Lymphocytes 18.6 % (21.0-51.0); %Neutrophils 68.1 % (42.0-75.0); Hematocrit 35.9 % (42.0-52.0); Hemoglobin 11.5 g/dL (14.0-18.0); Mean Corpuscular Hemoglobin 28.8 pg (27.0-31.0); Mean Platelet Volume 10.2 fL (7.4-10.4); Platelet Count 179 10x3/uL (130-400); RBC Distribution Width 15.5 % (11.5-14.5); Red Blood Cell (RBC) Count 3.99 mill/uL (4.70-6.10)
[2024-07-26 07:06] LABS: Anion Gap 17 mmol/L (10-20); BUN (Urea Nitrogen) 31 mg/dL (8.4-25.7); Calc. Creatinine Clearance 54 mL/min (70-130); Calcium 8.6 mg/dL (7.8-10.44); Carbon Dioxide 21 mmol/L (23-31); Chloride 106 mmol/L (98-107); Estimated GFR 29; Glucose 202 mg/dL (83-110); Potassium 4.1 mmol/L (3.5-5.1); Sodium 140 mmol/L (136-145)
[2024-07-26 07:24] LABS: Hemoglobin A1c 8.2 % (4.0-6.0)
[2024-07-26] MEDS: Ipratropium/Albuterol 3 ML NEB NEB SCH (10:46)
[2024-07-26] MEDS ORDERED: Ipratropium/Albuterol 3 ML NEB NEB PRN (12:00)
[2024-07-26 15:50] LABS: Bacteria/HPF None Seen HPF (None Seen); Bilirubin Negative (Negative); Blood, Urine 1+ (Negative); Clarity Clear (Clear); Glucose, Urine (Dipstick) Normal (Negative); Ketone, Urine Negative (Negative); Leukocyte Negative Leu/uL (Negative); Nitrite Negative (Negative); Protein, Urine (Dipstick) 30 mg/dL (Neg-Trace); RBC/HPF 0-3 HPF (0-3); Specific Gravity, Urine 1.009 (1.002-1.036); Squamous Epithelial None Seen HPF (0-3); Urobilinogen Normal mg/dL (Less than 2); WBC/HPF 0-3 HPF (0-3)
[2024-07-27 05:34] LABS: Hematocrit 30.1 % (42.0-52.0); Hemoglobin 9.9 g/dL (14.0-18.0); Mean Corpuscular HGB CONC 32.9 g/dL (32.0-36.0); Mean Corpuscular Hemoglobin 29.2 pg (27.0-31.0); Mean Corpuscular Volume 88.8 fL (78.0-98.0); Mean Platelet Volume 10.4 fL (7.4-10.4); Platelet Count 173 10x3/uL (130-400); RBC Distribution Width 15.6 % (11.5-14.5); Red Blood Cell (RBC) Count 3.39 mill/uL (4.70-6.10)
[2024-07-27 05:45] LABS: #Basophils Less than 0.03 10x3/uL (0.0-0.2); %Basophils 0.2 % (0.0-1.0); %Eosinophils 0.5 % (0.0-10.0); %Lymphocytes 19.8 % (21.0-51.0); %Monocytes 11.8 % (0.0-10.0); %Neutrophils 67.1 % (42.0-75.0); Hemoglobin 9.9 g/dL (14.0-18.0); Mean Corpuscular Hemoglobin 29.1 pg (27.0-31.0); Mean Corpuscular Volume 88.2 fL (78.0-98.0); Mean Platelet Volume 10.6 fL (7.4-10.4); Platelet Count 174 10x3/uL (130-400); RBC Distribution Width 15.7 % (11.5-14.5)
[2024-07-27 06:24] LABS: Anion Gap 16 mmol/L (10-20); BUN (Urea Nitrogen) 36 mg/dL (8.4-25.7); Calc. Creatinine Clearance 46 mL/min (70-130); Calcium 8.5 mg/dL (7.8-10.44); Carbon Dioxide 22 mmol/L (23-31); Chloride 104 mmol/L (98-107); Estimated GFR 24; Glucose 178 mg/dL (83-110); Potassium 3.7 mmol/L (3.5-5.1); Sodium 138 mmol/L (136-145)
[2024-07-27] MEDS: Ipratropium/Albuterol 3 ML NEB NEB SCH (09:07)
[2024-07-27] MEDS: cefTRIAXone\\ROCEPHIN 1 GM in Sodium Chloride 0.9% 100 ML IVPB SCH (14:45)
[2024-07-27] MEDS: traMADol HCl 50 MG TAB PO PRN (20:34)
[2024-07-28 05:04] LABS: Hematocrit 30.9 % (42.0-52.0); Hemoglobin 10.4 g/dL (14.0-18.0); Mean Corpuscular HGB CONC 33.7 g/dL (32.0-36.0); Mean Corpuscular Hemoglobin 29.6 pg (27.0-31.0); Platelet Count 218 10x3/uL (130-400); RBC Distribution Width 15.9 % (11.5-14.5); Red Blood Cell (RBC) Count 3.51 mill/uL (4.70-6.10)
[2024-07-28 11:15] LABS: Bacteria/HPF None Seen HPF (None Seen); Bilirubin Negative (Negative); Blood, Urine Trace (Negative); CAUTI Indications for Culture Fever or rigors; Clarity Clear (Clear); Glucose, Urine (Dipstick) Normal (Negative); Ketone, Urine Negative (Negative); Leukocyte Negative Leu/uL (Negative); Nitrite Negative (Negative); Protein, Urine (Dipstick) 50 mg/dL (Neg-Trace); RBC/HPF 0-3 HPF (0-3); Specific Gravity, Urine 1.015 (1.002-1.036); Squamous Epithelial None Seen HPF (0-3); Urobilinogen Normal mg/dL (Less than 2); WBC/HPF 0-3 HPF (0-3); pH, Urine 5.5 (5.0-9.0)
[2024-07-28 11:16] LABS: Urine Culture Reflex No No
[2024-07-28] MEDS: Ondansetron PF 4 MG/2 ML Vial IVP PRN (13:50)
[2024-07-29 05:27] LABS: Hematocrit 29.4 % (42.0-52.0); Hemoglobin 9.8 g/dL (14.0-18.0); Mean Corpuscular HGB CONC 33.3 g/dL (32.0-36.0); Mean Corpuscular Hemoglobin 29.5 pg (27.0-31.0); Mean Corpuscular Volume 88.6 fL (78.0-98.0); Mean Platelet Volume 10.4 fL (7.4-10.4); Platelet Count 213 10x3/uL (130-400); RBC Distribution Width 15.9 % (11.5-14.5); Red Blood Cell (RBC) Count 3.32 mill/uL (4.70-6.10)
[2024-07-29] MEDS: HYDROcodone/Acetaminophen 5/325 mg Tablet PO PRN (10:17)
[2024-07-29 10:34] LABS: Influenza A by NAA Not Detected (NotDetected); Influenza B by NAA Not Detected (NotDetected); RSV by NAA Not Detected (NotDetected); SARS-CoV-2 NAA Rapid Test Not Detected (NotDetected)
[2024-07-29] MEDS: Gabapentin 300 MG CAP PO SCH (18:36)
[2024-07-30 05:44] LABS: Hematocrit 33.1 % (42.0-52.0); Hemoglobin 10.2 g/dL (14.0-18.0); Mean Corpuscular HGB CONC 30.8 g/dL (32.0-36.0); Mean Corpuscular Hemoglobin 29.2 pg (27.0-31.0); Mean Corpuscular Volume 94.8 fL (78.0-98.0); Mean Platelet Volume 11.3 fL (7.4-10.4); Platelet Count 196 10x3/uL (130-400); RBC Distribution Width 16.6 % (11.5-14.5); Red Blood Cell (RBC) Count 3.49 mill/uL (4.70-6.10)
[2024-07-30 06:01] LABS: Anion Gap 16 mmol/L (10-20); BUN (Urea Nitrogen) 47 mg/dL (8.4-25.7); Calc. Creatinine Clearance 52 mL/min (70-130); Calcium 8.6 mg/dL (7.8-10.44); Carbon Dioxide 18 mmol/L (23-31); Chloride 107 mmol/L (98-107); Estimated GFR 30; Glucose 136 mg/dL (83-110); Potassium 4.3 mmol/L (3.5-5.1); Sodium 137 mmol/L (136-145)
[2024-07-30] MEDS: Sodium Bicarbonate Tab 325 MG TAB PO SCH (08:30)
[2024-07-30] MEDS: Gabapentin 300 MG CAP PO SCH (08:31)
[2024-07-30] MEDS: Amoxicillin/Potassium Clav 875 MG TAB PO SCH (08:31)
[2024-07-31 05:46] LABS: Hematocrit 31.2 % (42.0-52.0); Hemoglobin 10.1 g/dL (14.0-18.0); Mean Corpuscular HGB CONC 32.4 g/dL (32.0-36.0); Mean Corpuscular Hemoglobin 28.5 pg (27.0-31.0); Mean Corpuscular Volume 87.9 fL (78.0-98.0); Platelet Count 308 10x3/uL (130-400); RBC Distribution Width 15.7 % (11.5-14.5); Red Blood Cell (RBC) Count 3.55 mill/uL (4.70-6.10)
[2024-07-31 05:56] LABS: Anion Gap 16 mmol/L (10-20); BUN (Urea Nitrogen) 42 mg/dL (8.4-25.7); Calc. Creatinine Clearance 55 mL/min (70-130); Calcium 8.6 mg/dL (7.8-10.44); Carbon Dioxide 21 mmol/L (23-31); Chloride 106 mmol/L (98-107); Estimated GFR 32; Glucose 156 mg/dL (83-110); Potassium 3.6 mmol/L (3.5-5.1); Sodium 139 mmol/L (136-145)
[2024-08-01 01:47] VITALS: BP 118/65; TEMP 98.9
== END 2024-07-31 20:26 | DRG 470 ==
LOC: SDC 05:44 → SURG A 10:55 → SDC 13:03 → SURG A 13:03 → OBSVTOIN 07-26 18:17
PROVIDERS: ADMIT Orthopaedic Surgery; ATTEND Orthopaedic Surgery
PROC: 0SRD0J9 Replacement of Left Knee Joint with Synthetic Substitute, Cemented, Open Approach (ICD-10-PCS; principal; 2024-07-24)
DX: M17.12 Unilateral primary osteoarthritis, left knee (principal); N39.0 Urinary tract infection, site not specified; I50.32 Chronic diastolic (congestive) heart failure; N18.4 Chronic kidney disease, stage 4 (severe); I13.0 Hypertensive heart and chronic kidney disease with heart failure and stage 1 through stage 4 chronic kidney disease, or unspecified chronic kidney disease; E11.22 Type 2 diabetes mellitus with diabetic chronic kidney disease; E11.42 Type 2 diabetes mellitus with diabetic polyneuropathy; Z79.4 Long term (current) use of insulin; Z79.82 Long term (current) use of aspirin; Z79.899 Other long term (current) drug therapy
CPT/HCPCS: 0241U; 36415; 36416; 71045; 71250; 80048; 81001; 83036; 83605; 84145; 85025; 85027; 85610; 87040; 87086; 94640; 96374; 96375; 96376; A4306; C1713; C1776; C1889; G0378; J0171; J0665; J0696; J1815; J2250; J2405; J2704; J2795; J3370; J7620